=== PATIENT | male | born 1950 | race Caucasian/White ===

== ENCOUNTER 2017-02-17 16:25 | Emergency (ER) | payer OTHER ==
[~2017-02-17] VITALS: Ht 172.7 cm; Wt 127.0 kg
[~2017-02-17 16:25] MED LIST: AFRIN NASAL60 SPRAY NAS; ATORVASTATIN CA40 MG PO; AUGMENTIN 500M500 MG PO; AUGMENTIN 875875 MG PO; BENICAR HCT 12.1 TA2 PO; DILTIAZEM120 MG PO; DOXAZOSIN4 MG PO; DULERA1 AR1 IH; EPLERENONE50 MG PO; FLOMAX0.4 M1 PO; FLONASE120 SPRAY/ NAS; FOLIC ACID0.4 MG PO; IPRATROPIUM BRO1 POW IH; K-DUR 20MEQ TA20 MEQ PO; KLOR-CON20 MEQ PO; LASIX40 MG PO; LEVOCETIRIZINE D5 MG PO; METFORMIN HCL500 MG PO; METFORMIN1000 MG PO; METOPROLOL SUCC50 MG PO; NASONEX0.05 MG/Ac IH; NASONEX0.05 MG/Ac NAS; NEXIUM 40MG40 MG PO; PERCOCET 5-3251 EACH PO; PRADAXA150 MG PO; PREDNISONE 20MG20 MG PO; PROAIR HFA0.09 MG/Ac IH; SINGULAIR10 MG PO; SUPER B COMPLEX PO; TRICOR 145 MG145 MG PO; TRICOR 48MG48 MG PO; VITAMIN B COMPL1 TA3 PO; ZOFRAN ODT4 M1 PO
--- NOTE | 2017-02-17 18:04 | ED CARDIAC/CP/PALPITATIONS ---
History of Present Illness General Chief Complaint: General Adult Stated Complaint: LOW BP 80'S/50'S AT HOME, HEAVINESS IN CHEST Source: patient, family, old records Exam Limitations: no limitations Vital Signs & Intake/Output Vital Signs & Intake/Output Vital Signs Date Time Temp Pulse Resp B/P B/P Pulse O2 O2 Flow FiO2 Mean Ox Delivery Rate 02/17 2252 96.0 75 16 176/92 96 Room Air 02/17 1857 78 16 144/70 02/17 1823 94 02/17 1644 97.3 62 18 128/80 97 Room Air Allergies Coded Allergies: NO KNOWN ALLERGIES (02/11/11) Reconcile Medications Albuterol Sulfate (Proair Hfa) 90 MCG HFA.AER.AD 2 PUF INH BID PRN ASTHMA/COPD (Reported) Atorvastatin Calcium 40 MG TABLET 1 TAB PO DAILY CHOLESTEROL (Reported) Azelastine/Fluticasone (Dymista Nasal [place]) 137 MCG-50 MCG/SPRAY SPRAY.PUMP 1 SPRAY NASB BID ALLERGIES (Reported) Diltiazem HCl 120 MG TABLET 1 TAB PO QAM HEART/BP (Reported) Eplerenone 50 MG TABLET 1 TAB PO DAILY BP (Reported) Fenofibrate Nanocrystallized (Fenofibrate) 145 MG TABLET 1 TAB PO DAILY CHOLESTEROL/TRIGLYCERIDES (Reported) Furosemide 20 MG TABLET 1 TAB PO DAILY DIURETIC (Reported) Ipratropium/Albuterol Sulfate (Iprat-Albut 0.5-3(2.5) MG/3 Ml) 0.5 MG-3 MG (2.5 MG BASE)/3 ML AMPUL.NEB 1 VIAL INH Q6H PRN ASTHMA/COPD (Reported) Levocetirizine Dihydrochloride 5 MG TABLET 1 TAB PO DAILY ALLERGIES (Reported ) Metformin HCl 500 MG TABLET 1 TAB PO DAILY DM (Reported) Metoprolol Tartrate 50 MG TABLET 1 TAB PO BID HEART/BP (Reported) Mometasone/Formoterol (Dulera 200 Mcg/5 Mcg Inhaler) 200 MCG-5 MCG/ACTUATION HFA.AER.AD 2 PUF INH BID ASTHMA/COPD (Reported) Montelukast Sodium 10 MG TABLET 1 TAB PO DAILY ALLERGIES (Reported) Olmesartan Medoxomil (Benicar) 20 MG TABLET 1 TAB PO DAILY BP (Reported) Omalizumab (Xolair) 150 MG VIAL 150 MG INJ Q2W ALLERGIES (Reported) Potassium Chloride 40 MEQ/15 ML LIQUID 15 ML PO DAILY SUPPLEMENT (Reported) Rivaroxaban (Xarelto) 20 MG TABLET 1 TAB PO DAILY BLOOD THINNER (Reported) with food Tiotropium Trail (Spiriva Respimat) 1.25 MCG/ACTUATION MIST.INHAL 2.5 MCG INH DAILY ASTHMA/COPD (Reported) Triage Note: PT REPORTS TO FEELING LIGHTHEADED AND UPON EVALUATING HIS BP HE NOTED VALUES TO BE TOO LOW. REPORTED 80'S SYSTOLIC AND 40'S DIASTOLIC. FOR THIS REASON HE DECIDED TO BE EVALUATED HERE AT THE ED. DENIED CHEST PAIN, NAUSEA OR VOMITING Triage Nurses Notes Reviewed? yes Onset: Abrupt Duration: hour(s): (09/30) Timing: single episode today Quality/Severity: moderate Location: central Activities at Onset: rest Aspirin Today: no aspirin today (ON XARELTO) HPI: This is a 66-year-old male with history of A. fib on xarelto, history of asthma, recent allergies who presents to the ER with his for chief complaint of feeling very lethargic when he got home. He was running run errands and at 2:30 came home when he felt lightheaded and dizzy. He felt very weak and lethargic. He checked his blood pressure was which was 85/50 and his heart rate was in the low 50s. Normally his blood pressure runs around 120 or 1:30 systolic. Denies any fever or chills. He has been eating and drinking normally. Patient is status post a course of of prednisone for 6 days which was given to him for a fraction. He states that he is having active cough still producing green sputum. He states his chest feels heavy like with brief previous asthma. Patient returned from [place] one week ago. He does admit to lower extremity swelling. (JOCELYNN SHEIKH,INDIRA) Past History Travel History Traveled to [place] past 21 day No Medical History Any Pertinent Medical History? 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 No (INDIRA CABEZAS MD) Review of Systems Review of Systems Constitutional: Denies: chills, fever. EENTM: Reports: no symptoms. Respiratory: Reports: cough, short of breath. Cardiovascular: Reports: chest pain, peripheral edema. Denies: palpitations, syncope. GI: Denies: abdominal pain. Genitourinary: Reports: no symptoms. Musculoskeletal: Reports: no symptoms. Skin: Reports: no symptoms. Neurological/Psychological: Reports: no symptoms. Hematologic/Endocrine: Denies: bruising, bleeding. Immunologic/Allergic: Denies: splenectomy. All Other Systems: Reviewed and Negative (INDIRA CABEZAS MD) Physical Exam Physical Exam General Appearance: well developed/nourished, alert, awake, mild distress, severe distress, obese Head: atraumatic, normal appearance Eyes: Bilateral: normal appearance, PERRL, EOMI. Ears, Nose, Throat: normal pharynx, hearing grossly normal Neck: normal inspection, supple, full range of motion Respiratory: DIMINISHED BREATH SOUNDS BILATERALLY Cardiovascular: irregularly irregular Peripheral Pulses: 2+ radial (R), 2+ radial (L) Gastrointestinal: soft, non-tender Extremities: 2+ EDEMA BILATERALLY Neurologic/Psych: no motor/sensory deficits, awake, alert, oriented x 3 Skin: intact, normal color, warm/dry Core Measures ACS in differential dx? Yes ASA ordered for poss ACS? No-other contraindication (ON XARELTO) Severe Sepsis Present: No Septic Shock Present: No (INDIRA CABEZAS MD) Progress Differential Diagnosis: AMI, CHF/pulm edema, pneumonia, pneumothorax, pulmonary embolism, unstable angina, bronchitis, asthma exacerbation Plan of Care: Orders Procedure Date/time Status TROPONIN LEVEL 02/17 2156 Complete BLOOD CULTURE 02/17 180 Active LACTIC ACID 02/17 180 Complete RT ED ORDERS 02/17 180 Active Telemetry/Overlock Collar Setter 02/17 180 Active TROPONIN LEVEL 02/17 180 Complete PARTIAL THROMBOPLASTIN TIME 02/17 180 Complete PROTHROMBIN TIME 02/17 180 Complete COMPREHENSIVE METABOLIC PANEL 02/17 180 Complete CBC WITHOUT DIFFERENTIAL 02/17 1803 Complete B-TYPE NATRIURETIC PEP (BNP) 02/17 1803 Complete EKG 02/17 1627 Active Laboratory Tests 02/17/17 2210: Troponin I < 0.01 02/17/17 2104: Lactic Acid Cancelled 02/17/171936: Lactic Acid 1.0 02/17/171936: Anion Gap 7, Estimated GFR 51 L, BUN/Creatinine Ratio 22.1, Glucose 96, Calcium 8.5, Total Bilirubin 0.4, AST 9 L, ALT 38, Alkaline Phosphatase 37, Troponin I < 0.01, Llx-N-Hgqsentrqvy Pept 1980 H, Total Protein 5.8 L, Albumin 3.4 L, Globulin 2.4, Albumin/Globulin Ratio 1.4, PT 28.0 H, INR 2.69 H, APTT 37, CBC w Diff NO MAN DIFF REQ, RBC 4.18 L, MCV 89.3, MCH 29.0, RDW 14.2, MPV 8.1, Gran % 73.1, Lymphocytes % 15.6 L, Monocytes % 8.8, Eosinophils % 2.0, Basophils % 0.5, Absolute Granulocytes 6.9 H, Absolute Lymphocytes 1.5, Absolute Monocytes 0.8 H, Absolute Eosinophils 0.2, Absolute Basophils 0.1, PUBS MCHC 32.5 L Microbiology 02/17 1937 BLOOD: Blood Culture - RECD 02/18 1804 BLOOD: Blood Culture - CAN Cancelled: Cancelled via OE: NOT NEEDED Diagnostic Imaging: Viewed by Me: Radiology Read. Discussed w/RAD: Radiology Read. CXR Impression: PATIENT: LILI CHUNG PRESENT AGE: 66 PATIENT ACCOUNT NO: [id number] : 52 LOCATION: [facility] ORDERING PHYSICIAN: INDIRA CABEZAS MD SERVICE DATE: 02/17/17 EXAM TYPE: RAD - XRY-CHEST XRAY , PA AND LATERAL EXAMINATION: XR CHEST CLINICAL INFORMATION: Cough, green sputum. Heavy chest. COMPARISON: Multiple priors, most recently chest CT from and radiograph from 05/01/2015. TECHNIQUE: 2 views of the chest were obtained. FINDINGS: The lungs are well expanded. Lucency of the upper lungs is consistent with known emphysema. There is a hazy left basilar opacity. The right lung appears clear. No pneumothorax. The cardiomediastinal silhouette is unremarkable. IMPRESSION: Left basilar opacity likely represents a combination of small pleural effusion with associated atelectasis/pneumonia. The appearance could be in part secondary to a prominent epicardial fat-pad as seen on prior CT. DICTATED BY: HERNÁN HARTMANN MD DATE/TIME DICTATED:02/17/171823 SUPERINTENDENT CAR [employer]STRUCTION:[employer] DATE/TIME TRANSCRIBED:02/17/171823 CONFIDENTIAL, DO NOT COPY WITHOUT APPROPRIATE AUTHORIZATION. <Electronically signed in Other Vendor System> SIGNED BY: HERNÁN HARTMANN MD 02/17/171828 Initial ED EKG: AFIB, RATE CONTROLLED Hand-Off Endorsed To: GILDA JOHNSON MD Endorsed Time: 1899 Pending: labs (INDIRA CABEZAS MD) Comments: Patient has been seen by Dr. Cartagena in the emergency department. Patient has been advised of his laboratory data and chest x-ray results. Patient states he has had a productive cough. There are no fevers. He has a normal white count. Patient states he did feel better, and on antibiotics. (GILDA JOHNSON MD) Departure Departure Condition: Stable Clinical Impression Primary Impression: Pneumonia Referrals: PETE JOLLEY MD (PCP/Family) Departure Forms: Customer Survey General Discharge Information (INDIRA CABEZAS MD) Departure Disposition: HOME OR SELF CARE Additional Instructions: RETURN IF SYMPTOMS WORSEN OR FOR ANY CONCERNS Prescriptions: Current Visit Scripts Azithromycin (Zithromax) 1 DP PO AD #6 TAB 2 the first day followed by 1 for days 2-5 (GILDA JOHNSON MD) Critical Care Note Critical Care Note Critical Care Time: non-applicable (INDIRA CABEZAS MD)
--- NOTE | 2017-02-17 18:29 | RADIOLOGY REPORT ---
EXAMINATION: XR CHEST CLINICAL INFORMATION: Cough, green sputum. Heavy chest. COMPARISON: Multiple priors, most recently chest CT from 08/13/2016 and radiograph from 05/01/2015. TECHNIQUE: 2 views of the chest were obtained. FINDINGS: The lungs are well expanded. Lucency of the upper lungs is consistent with known emphysema. There is a hazy left basilar opacity. The right lung appears clear. No pneumothorax. The cardiomediastinal silhouette is unremarkable. IMPRESSION: Left basilar opacity likely represents a combination of small pleural effusion with associated atelectasis/pneumonia. The appearance could be in part secondary to a prominent epicardial fat-pad as seen on prior CT.
[2017-02-17] MEDS ORDERED: IPRAT-ALBUT 0.5-3 ML INH (18:49)
[2017-02-17] MEDS ORDERED: ATORVASTATIN CA40 M1 PO (18:50)
[2017-02-17] MEDS ORDERED: METOPROLOL TART50 M1 PO (18:50)
[2017-02-17] MEDS ORDERED: BENICAR20 M1 PO (18:50)
[2017-02-17] MEDS ORDERED: DILTIAZEM HCL120 M3 PO (18:50)
[2017-02-17] MEDS ORDERED: DYMISTA NASAL S23 GM NASB (18:51)
[2017-02-17] MEDS ORDERED: FENOFIBRATE145 M1 PO (18:51)
[2017-02-17] MEDS ORDERED: LEVOCETIRIZINE D5 M1 PO (18:51)
[2017-02-17] MEDS ORDERED: XOLAIR INJ (18:51)
[2017-02-17] MEDS ORDERED: MONTELUKAST SOD10 M1 PO (18:52)
[2017-02-17] MEDS ORDERED: METFORMIN HCL500 M3 PO (18:52)
[2017-02-17] MEDS ORDERED: XARELTO20 M2 PO (18:52)
[2017-02-17] MEDS ORDERED: FUROSEMIDE20 M1 PO (18:52)
[2017-02-17] MEDS ORDERED: EPLERENONE50 M1 PO (18:53)
[2017-02-17] MEDS ORDERED: DULERA 200 MCG/13 GM INH (18:53)
[2017-02-17] MEDS ORDERED: PROAIR HFA8.5 GM INH (18:54)
[2017-02-17] MEDS ORDERED: SPIRIVA RESPIMAT4 G1 INH (18:54)
[2017-02-17] MEDS ORDERED: POTASSIUM40 MEQ/15 PO (18:55)
[2017-02-17 19:50] LABS: ABSOLUTE BASOPHIL COUNT 0.1 /CUMM (0.0-0.2); ABSOLUTE EOSINOPHIL COUNT 0.2 /CUMM (0.0-0.7); ABSOLUTE GRANULOCYTE CT 6.9 /CUMM (1.4-6.5); ABSOLUTE LYMPH COUNT 1.5 /CUMM (1.2-3.4); ABSOLUTE MONOCYTE COUNT 0.8 /CUMM (0.10-0.60); BASOPHIL % 0.5 % (0.0-2.0); GRANULOCYTE % 73.1 % (42.2-75.2); HEMATOCRIT 37.4 % (42-52); MEAN CORPUSCULAR HGB CONC 32.5 G/DL (33.0-37.0); MEAN CORPUSCULAR VOLUME 89.3 FL (80.0-94.0); MEAN PLATELET VOLUME 8.1 FL (7.4-10.4); PLATELET COUNT 249 /CUMM (130-400); RBC DISTRIBUTION WIDTH 14.2 % (11.5-14.5); RED BLOOD CELL CT 4.18 /CUMM (4.70-6.10); WHITE BLOOD CELL COUNT 9.4 /CUMM (4.8-10.8)
[2017-02-17 20:14] LABS: PTT 37 SEC (25-37)
[2017-02-17 22:52] VITALS: BP 176/92
[2017-02-17] MEDS ORDERED: ZITHROMAX250 M2 PO (23:12)
== END 2017-02-17 23:20 ==
LOC: ERH 16:25
PROVIDERS: Emergency Medicine
DX: J18.9 Pneumonia, unspecified organism (principal); Z87.891 Personal history of nicotine dependence
CPT/HCPCS: 1263; 87040; 93005; 93010

== ENCOUNTER 2018-03-11 16:44 | Inpatient (IN) | payer OTHER ==
[~2018-03-11] VITALS: Ht 172.7 cm; Wt 139.7 kg
[~2018-03-11 16:44] MED LIST changes: +ATORVASTATIN CA40 M1 PO; +BENICAR20 M1 PO; +CEFUROXIME500 MG PO; +DILTIAZEM HCL120 M3 PO; +DOXAZOSIN MESYLA4 M1 PO; +DULERA 200 MCG/13 GM INH; +DYMISTA NASAL S23 GM NASB; +EPLERENONE50 M1 PO; +FENOFIBRATE145 M1 PO; +FUROSEMIDE20 M1 PO; +IPRAT-ALBUT 0.5-3 ML INH; +LASIX40 M1 PO; +LEVOCETIRIZINE D5 M1 PO; +METFORMIN HCL500 M3 PO; +METOPROLOL TART50 M1 PO; +MONTELUKAST SOD10 M1 PO; +POTASSIUM40 MEQ/15 PO; +PREDNISONE10 M2 PO; +PROAIR HFA8.5 GM INH; +SPIRIVA RESPIMAT4 G1 INH; +XARELTO20 M2 PO; +XOLAIR INJ; +ZITHROMAX250 M2 PO
[2018-03-11 17:27] LABS: ABSOLUTE BASOPHIL COUNT 0 /CUMM (0.0-0.2); ABSOLUTE EOSINOPHIL COUNT 0.4 /CUMM (0.0-0.7); ABSOLUTE GRANULOCYTE CT 7.9 /CUMM (1.4-6.5); ABSOLUTE LYMPH COUNT 1.2 /CUMM (1.2-3.4); ABSOLUTE MONOCYTE COUNT 0.8 /CUMM (0.10-0.60); BASOPHIL % 0.3 % (0.0-2.0); EOSINOPHIL % 3.6 % (0-5); GRANULOCYTE % 76.5 % (42.2-75.2); HEMATOCRIT 42.3 % (42-52); MEAN CORPUSCULAR HGB 29.6 PG (27.0-31.0); MEAN CORPUSCULAR VOLUME 89.7 FL (80.0-94.0); MEAN PLATELET VOLUME 8.2 FL (7.4-10.4); PLATELET COUNT 267 /CUMM (130-400); RBC DISTRIBUTION WIDTH 14.5 % (11.5-14.5); RED BLOOD CELL CT 4.72 /CUMM (4.70-6.10); WHITE BLOOD CELL COUNT 10.3 /CUMM (4.8-10.8)
--- NOTE | 2018-03-11 17:50 | RADIOLOGY REPORT ---
EXAMINATION: CHEST 2 VIEWS CLINICAL INFORMATION: Shortness of breath, cough. COMPARISON: 03/06/2018. TECHNIQUE: PA and lateral views of the chest were obtained. FINDINGS: The cardiac silhouette is stable. The mediastinal and hilar contours are unremarkable. There are no pneumothoraces. There is a small left pleural effusion. There is mild associated atelectasis. There are no consolidations. The osseous structures are stable. IMPRESSION: No consolidations. Small left pleural effusion.
--- NOTE | 2018-03-11 17:55 | ED DYSPNEA/ASTHMA COMPLAINT ---
History of Present Illness General Chief Complaint: Upper Respiratory Sx/Fever Stated Complaint: SIB DR JOLLEY S/P ER DISCHARGE W/ DX OF PNEUMONIA? Source: patient, family, old records Exam Limitations: no limitations Vital Signs & Intake/Output Vital Signs & Intake/Output Vital Signs Date Time Temp Pulse Resp B/P B/P Pulse O2 O2 Flow FiO2 Mean Ox Delivery Rate 03/12 0621 97.8 93 20 158/80 94 Room Air 03/11 2333 106 158/90 03/11 2255 97.7 87 18 158/90 96 Room Air 03/11 2218 Room Air 03/11 2122 98.5 110 16 176/94 97 Room Air 03/11 1946 97 Room Air 03/11 1946 98.5 98 18 185/105 97 Room Air 03/11 1653 97.7 98 18 178/97 95 Room Air ED Intake and Output 03/12 0000 03/11 1200 Intake Total 0 Output Total Balance 0 Intake, IV 0 Patient 306 lb Weight Weight Bed scale Measurement Method Allergies Coded Allergies: NO KNOWN ALLERGIES (02/11/11) Triage Note: PT FROM HOME C/O PNEUMONIA SINCE FRIDAY. PT WAS SEEN HERE IN ER ON FRIDAY AND DX WITH PNEUMONIA SENT HOME WITH MULTIPLE MEDICATIONS, PT SEEN PCP ON FRIDAY, NOT FEELING BETTER. PT PLACED ON LEVAQUIN WITHOUT ANY RELIEF. PT HAS A PRODUCTIVE COUGH WITH CLEAR SPUTUM, SOB AND LETHARGY. Triage Nurses Notes Reviewed? yes Onset: Gradual Duration: day(s): Timing: recent history Severity: moderate HPI: 67-year-old male with history of COPD, CHF, afib on Xarelto, HTN, diabetes, CKD presents to ED complaining of worsening symptoms of pneumonia. Patient was seen and evaluated here on 03/08 and was diagnosed with upper respiratory tract infection for which she was taking azithromycin and steroids for. Patient states that the following day he followed up with his primary care doctor and was switched to Levaquin. Patient states that despite 3 days of Levaquin his symptoms are worsening. Patient reports increasing shortness of breath, worse with laying flat and exertion. Patient also reports reductive of clear sputum. He reports chest pain and back pain which she associates with his cough. His chest pain has been constant for 5 days. Patient also feels body aches, weakness, and malaise. Patient has been going to Las[facility] clinic for IV Lasix 3 times a week and reports improvement in pedal edema. Patient denies fevers, chills, abdominal pain, nausea, vomiting. (Cait MENDOZA,Venessa Martinez) Reconcile Medications Albuterol Sulfate (Proair Hfa) 90 MCG HFA.AER.AD 2 PUF INH BID PRN ASTHMA/COPD (Reported) Atorvastatin Calcium 40 MG TABLET 1 TAB PO DAILY CHOLESTEROL (Reported) Azelastine/Fluticasone (Dymista Nasal [place]) 137 MCG-50 MCG/SPRAY SPRAY.PUMP 1 SPRAY NASB BID ALLERGIES (Reported) Budesonide/Formoterol Fumarate (Symbicort 160-4.5 Mcg Inhaler) 160 MCG-4.5 MCG/ ACTUATION HFA.AER.AD 2 PUF INH BID COPD (Reported) Eplerenone 50 MG TABLET 1 TAB PO DAILY BP (Reported) Esomeprazole (Nexium) 40 MG CAPSULE.DR 1 CAP PO DAILY GI (Reported) Fenofibrate Nanocrystallized (Fenofibrate) 145 MG TABLET 1 TAB PO DAILY CHOLESTEROL/TRIGLYCERIDES (Reported) Folic Acid 0.4 MG TABLET 1 TAB PO DAILY SUPPLEMENT (Reported) Furosemide (Lasix) 40 MG TABLET 1 TAB PO BID water pill (Reported) Ipratropium/Albuterol Sulfate (Iprat-Albut 0.5-3(2.5) MG/3 Ml) 0.5 MG-3 MG (2.5 MG BASE)/3 ML AMPUL.NEB 1 VIAL INH Q6H PRN ASTHMA/COPD (Reported) Levocetirizine Dihydrochloride 5 MG TABLET 1 TAB PO DAILY ALLERGIES (Reported ) Levofloxacin 500 MG TABLET 1 TAB PO DAILY ABX (Reported) Metformin HCl 500 MG TABLET 1 TAB PO DAILY DM (Reported) Metoprolol Tartrate 50 MG TABLET 1 TAB PO BID HEART/BP (Reported) Montelukast Sodium 10 MG TABLET 1 TAB PO DAILY ALLERGIES (Reported) Olmesartan Medoxomil (Benicar) 20 MG TABLET 1 TAB PO DAILY BP (Reported) Omalizumab (Xolair) 150 MG VIAL 150 MG INJ Q2W ALLERGIES (Reported) Potassium Chloride 40 MEQ/15 ML LIQUID 15 ML PO DAILY SUPPLEMENT (Reported) Rivaroxaban (Xarelto) 20 MG TABLET 1 TAB PO DAILY BLOOD THINNER (Reported) with food Tiotropium [place] (Spiriva Respimat) 1.25 MCG/ACTUATION MIST.INHAL 2.5 MCG INH DAILY ASTHMA/COPD (Reported) (Blanca SHEIKH,Channing Cerda) Past History Travel History Traveled to [place] past 21 day No Medical History Any Pertinent Medical History? 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 No (Venessa Lal) Review of Systems Review of Systems Constitutional: Reports: see HPI. EENTM: Reports: no symptoms. Respiratory: Reports: see HPI. Cardiovascular: Reports: see HPI. GI: Reports: no symptoms. Genitourinary: Reports: no symptoms. Musculoskeletal: Reports: see HPI. Skin: Reports: no symptoms. Neurological/Psychological: Reports: no symptoms. Hematologic/Endocrine: Reports: no symptoms. Immunologic/Allergic: Reports: no symptoms. All Other Systems: Reviewed and Negative (Venessa Lal) Physical Exam Physical Exam General Appearance: well developed/nourished, no apparent distress, alert, awake Head: atraumatic, normal appearance Eyes: Bilateral: normal appearance. Ears, Nose, Throat: hearing grossly normal Neck: normal inspection, supple, full range of motion Respiratory: normal breath sounds, chest non-tender, no respiratory distress, lungs clear Cardiovascular: normal peripheral pulses, irregularly irregular Peripheral Pulses: 2+ radial (R), 2+ radial (L) Gastrointestinal: normal bowel sounds, non-tender, no organomegaly, moderate firmness Extremities: normal range of motion, 2-3+ pitting edema bilateral lower extremities Neurologic/Psych: awake, alert, oriented x 3 Skin: intact, normal color, warm/dry Core Measures ACS in differential dx? Yes CVA/TIA Diagnosis No Sepsis Present: No Sepsis Focused Exam Completed? No (Venessa Lal) Progress Differential Diagnosis: AMI, bronchitis, costochondritis, CHF, COPD, pericarditis, pulmonary embolism, pneumonia, unstable angina Plan of Care: Orders Procedure Date/time Status CHF Diet 03/12 B Active MAGNESIUM 03/12 06 Active CBC WITHOUT DIFFERENTIAL 03/12 06 Active BASIC ELECTROLYTES PLUS BUN&CR 03/12 0600 Active Code Status 03/11 2330 Active Weight 03/11 2218 Active Vital Signs 03/11 2218 Active Teach/Educate 03/11 221 Active Pain Treatment and Response 03/11 221 Active Nutritional Intake, Monitor 03/11 2218 Active Isolation 03/11 2218 Active Intake & Output 03/11 2218 Active Patient Care Conference 03/11 2218 Active Activity/Ambulation 03/11 2218 Active STREP PNEUMO URINARY ANTIGEN 03/11 220 Active LEGIONELLA URINARY ANTIGEN 03/11 220 Active LOWER RESPIRATORY CULTURE 03/11 204 Active Pathway - chart 03/11 202 Active House Staff 03/11 202 Active Patient Data 03/11 202 Active ECHOCARDIOGRAM 03/11 202 Active Patient Data 03/11 1926 Active Intake & Output 03/11 1909 Active ED Holding Orders 03/11 1857 Active Admit to inpatient 03/11 1857 Active Vital Signs 03/11 1857 Active Code Status 03/11 1857 Complete MAGNESIUM 03/11 1715 Complete BLOOD CULTURE 03/11 1653 Active TROPONIN LEVEL 03/11 1653 Complete COMPREHENSIVE METABOLIC PANEL 03/11 1653 Complete CBC WITHOUT DIFFERENTIAL 03/11 1653 Complete B-TYPE NATRIURETIC PEP (BNP) 03/11 1653 Complete EKG 03/11 1653 Active TRC EVALUATION (GEN) 03/11 UNK Active CHF Core Measures 03/11 UNK Active Lab Add-on Test 03/11 UNK Active Weight 03/11 UNK Active VTE Mechanical Prophylaxis 03/11 UNK Active Vital Signs 03/11 UNK Active Telemetry/Shirt Line Operator 03/11 UNK Active Intake & Output 03/11 UNK Active FingerStick- Glucose 03/11 UNK Active Activity/Ambulation 03/11 UNK Active Current Medications Sig/Rachel Start time Last Medication Dose Stop Time Status Admin Atorvastatin Calcium 40 MG DAILY 03/12 0900 AC (Lipitor) Azithromycin 500 MG DAILY 03/12 09 AC (Zithromax) Sodium Chloride 250 ML (Normal Saline 0.9%) Ceftriaxone Sodium 2,000 MG DAILY 03/12 0900 AC (Rocephin) Fenofibrate 145 MG DAILY 03/12 0900 AC (Tricor) Folic Acid 1 MG DAILY 03/12 0900 AC (Folic Acid) Losartan Potassium 50 MG DAILY 03/12 09 AC (Cozaar) Montelukast Sodium 10 MG DAILY 03/12 0900 AC (Singulair) Rivaroxaban 20 MG DAILY 03/12 0900 AC (Xarelto) Omeprazole 40 MG DAILY AC 03/12 0700 AC 03/12 (Prilosec) 0544 Metoprolol Tartrate 50 MG BID 03/114 AC 03/11 (Lopressor) 2333 Methylprednisolone 40 MG Q12 03/11 2158 AC 03/11 (Solumedrol) 2333 Laboratory Tests 03/12/18 0632: Sodium Pending, Potassium Pending, Chloride Pending, Carbon Dioxide Pending, Anion Gap Pending, BUN Pending, Creatinine Pending, BUN/Creatinine Ratio Pending , Magnesium Pending, CBC w Diff Pending, WBC Pending, RBC Pending, Hgb Pending, Hct Pending, MCV Pending, MCH Pending, MCHC Pending, RDW Pending, Plt Count Pending, MPV Pending 03/11/18 1715: Anion Gap 13, Estimated GFR 41 L, BUN/Creatinine Ratio 17.1, Glucose 111 H, Calcium 9.3, Magnesium 1.7, Total Bilirubin 0.4, AST 16 L, ALT 16 L, Alkaline Phosphatase 48, Troponin I < 0.01, [id number]-Jdcdbaufyoa Pept 2090 H, Total Protein 6.4, Albumin 3.5, Globulin 2.9, Albumin/Globulin Ratio 1.2, CBC w Diff NO MAN DIFF REQ, RBC 4.72, MCV 89.7, MCH 29.6, MCHC 33.0, RDW 14.5, MPV 8.2, Gran % 76.5 H, Lymphocytes % 11.7 L, Monocytes % 7.9, Eosinophils % 3.6, Basophils % 0.3, Absolute Granulocytes 7.9 H, Absolute Lymphocytes 1.2, Absolute Monocytes 0.8 H, Absolute Eosinophils 0.4, Absolute Basophils 0 Microbiology 03/12 530 URINE ROUT: Legionella Antigen - RECD 03/12 530 URINE ROUT: Streptococcus pneumoniae Antigen (M - RECD 03/12 35 LOWER RESP: Respiratory Culture - RECD 06/14 0035 LOWER RESP: Gram Stain - RECD 03/11 1855 BLOOD: Blood Culture - RECD 03/11 1715 BLOOD: Blood Culture - RECD Patient's BNP has doubled compared to previous labs from a few days ago. Patient reports worsening symptoms including dyspnea with lying flat and exertion. Patient does not feel comfortable going home. He has no fevers. His symptoms are more consistent with CHF exacerbation than infectious etiology. Symptoms are worsening despite visits to CHF clinic as outpatient. Given these findings with multiple ER visits and primary care visits it is in the patient's best interest to be admitted here to the hospital. Spoke with Dr. Jolley who agrees with this plan, he recommends echocardiogram with Dr. Cartagena while the patient is here. He also states patient will require slow diuresis given his history of aortic stenosis. Spoke with case management who recommend full admission. Dr. Rios agrees with this plan. Awaiting cardiology return page. Diagnostic Imaging: Viewed by Me: Radiology Read. Discussed w/RAD: Radiology Read. Radiology Impression: PATIENT: LILI CHUNG PRESENT AGE: 67 PATIENT ACCOUNT NO: [id number] : 52 LOCATION: [facility] ORDERING PHYSICIAN: Faisal MENDOZA SERVICE DATE: 03/11/18 EXAM TYPE : RAD - XRY-CHEST XRAY, TWO VIEWS EXAMINATION: CHEST 2 VIEWS CLINICAL INFORMATION: Shortness of breath, cough. COMPARISON: 03/06/2018. TECHNIQUE: PA and lateral views of the chest were obtained. FINDINGS: The cardiac silhouette is stable. The mediastinal and hilar contours are unremarkable. There are no pneumothoraces. There is a small left pleural effusion. There is mild associated atelectasis. There are no consolidations. The osseous structures are stable. IMPRESSION: No consolidations. Small left pleural effusion. DICTATED BY: Panchito Ko MD DATE/TIME DICTATED:03/11/181743 TRACK WALKER:SVETLANA DATE/ TIME TRANSCRIBED:03/11/181743 CONFIDENTIAL, DO NOT COPY WITHOUT APPROPRIATE AUTHORIZATION. <Electronically signed in Other Vendor System> SIGNED BY: Panchito Ko MD 03/11/18 1540 Initial ED EKG: atrial fibrillation @102bpm, nonspecific ST changes Prior EKG: unchanged (Cait MENDOZA,Venessa Martinez) Departure Departure Disposition: STILL A PATIENT Condition: Stable Clinical Impression Primary Impression: CHF exacerbation Qualifiers: Heart failure type: unspecified Qualified Code: I50.9 - Heart failure, unspecified Secondary Impressions: Chest pain Qualifiers: Chest pain type: unspecified Qualified Code: R07.9 - Chest pain, unspecified Dyspnea Qualifiers: Dyspnea type: unspecified Qualified Code: R06.00 - Dyspnea, unspecified Referrals: Demarcus Jolley MD (PCP/Family) Departure Forms: Customer Survey General Discharge Information Admission Note Spoke With: Demarcus Jolley MD Documentation of Exam: Documentation of any treatments & extenuating circumstances including Concerns Regarding Discharge (functional status, medication knowledge or non-compliance, living conditions, etc.) that warrant an admission rather than observation: [CHF exacerbation with increasing BNP, symptomatic patient who is very dyspneic, requires cardiology consult, slow diuresis in setting of aortic stenosis, echo, telemetry monitoring, premature discharge medically unsafe] (Venessa Lal) PA/PHARMACY RESIDENT Co-Sign Statement Statement: ED Attending supervision documentation- [X] I saw and evaluated the patient. I have also reviewed all the pertinent lab results and diagnostic results. I agree with the findings and the plan of care as documented in the PA's/PHARMACY RESIDENT's documentation. [X] I have reviewed the ED Record and agree with the PA's/PHARMACY RESIDENT's documentation. [] Additions or exceptions (if any) to the PAs/PHARMACY RESIDENT's note and plan are summarized below: [Patient to be admitted to telemetry for IV antibiotics, IV diuresis, serial enzymes, cardiology consultation, pulmonary consultation] (Blanca SHEIKH,Channing Cerda) Critical Care Note Critical Care Note Critical Care Time: non-applicable (Venessa Lal)
[2018-03-11] MEDS ORDERED: LEVOFLOXACIN500 M1 PO (19:42)
[2018-03-11] MEDS ORDERED: LASIX80 M1 PO (19:43)
[2018-03-11] MEDS ORDERED: SYMBICORT 16010.2 GM INH (19:45)
[2018-03-11] MEDS ORDERED: NEXIUM40 M1 PO (19:46)
[2018-03-11] MEDS ORDERED: FOLIC ACID0.4 M1 PO (19:46)
--- NOTE | 2018-03-11 20:08 | History & Physical ---
Rafael Zarate MD,[facility] 03/11/182007: General Information and HPI MD Statement: I have seen and personally examined LILI CHUNG and documented this H&P. The patient is a 67 year old M who presented with a patient stated chief complaint of [SOB and cough]. Source of Information: patient, family, old records Exam Limitations: no limitations History of Present Illness: Patient is 67-year-old male with PMH of obese, CHF (diast and right side, follows Dr Cartagena) HTN, HLD, LILIA, DM, obesity, asthma, (area~1cm2), pulm HTN, Afib (on xeralton and metoprolol) presented to the ED with with chief complaint of shortness of breathing and cough. Patient noted that his complaints started since about 2 weeks ago after a travel that he had to [place] (which he related to hot humid weather). Patient also reported episodes of hemoptesis. His complaint did not improve after that. Patient visited ED on Friday for SOB, cough, clear sputumm and lethargy, was diagnosed with URTI/pneumonia and was adminitested azithromycin and prednisone, he did not take prednisolon the next day followed Dr Aguilera and recieved Levoquin with no improvement. Patient reported worsening of shortness, orthopnea, cough w sputum. Patient also reported cough with deep breathing, chest pain which increased with cough. Patient also reported body ache, fatigue. Patient goes to CHF clinic 3 times a week for IV Lasix and he recieved extra doses of Lasix for the last week, he noted his bilateral LE edema decreased. Patient was last admitted to [facility] in Apr 2017 for exacerbation of CHF and had increased Cr after IV lasxi, was discharged on higher dose of lasix with follow up visits in CHF clinic. He also had a visit to ED in May 2017 for SOB and was discharged with steroids for asthma/COPD after consulting Dr Lawson. The stress test peformed in Jun 2017 was negative. Patient quited smoking more than 20 y ago, and drinks scotch during the weekend. 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 spouse Services at Home: None Primary Language: Martiniquais Review of Systems Review of Systems Constitutional: Reports: see HPI. Exam & Diagnostic Data Last 24 Hrs of Vital Signs/I&O Vital Signs Date Time Temp Pulse Resp B/P B/P Pulse O2 O2 Flow FiO2 Mean Ox Delivery Rate 03/11 2122 98.5 110 16 176/94 97 Room Air 03/11 194 97 Room Air 03/11 194 98.5 98 18 185/105 97 Room Air 03/11 1653 97.7 98 18 178/97 95 Room Air Physical Exam General Appearance Alert, Oriented X3, Cooperative, Mild Distress, obese Skin No Rashes Skin Temp/Moisture Exam: Warm/Dry HEENT Atraumatic, EOMI Cardiovascular Regular Rate, Normal S1, Normal S2 Lungs No wheezing, cough with deep breathing, decreased breathing sounds Abdomen Soft, No Tenderness, obese Neurological Normal Speech, Strength at 5/5 X4 Ext Extremities +2-3 edema Last 24 Hrs of Labs/Ramon: Laboratory Tests 03/11/18 1715: Anion Gap 13, Estimated GFR 41 L, BUN/Creatinine Ratio 17.1, Glucose 111 H, Calcium 9.3, Magnesium 1.7, Total Bilirubin 0.4, AST 16 L, ALT 16 L, Alkaline Phosphatase 48, Troponin I < 0.01, Vza-H-Fljmajpdyuk Pept 2090 H, Total Protein 6.4, Albumin 3.5, Globulin 2.9, Albumin/Globulin Ratio 1.2, CBC w Diff NO MAN DIFF REQ, RBC 4.72, MCV 89.7, MCH 29.6, MCHC 33.0, RDW 14.5, MPV 8.2, Gran % 76.5 H, Lymphocytes % 11.7 L, Monocytes % 7.9, Eosinophils % 3.6, Basophils % 0.3, Absolute Granulocytes 7.9 H, Absolute Lymphocytes 1.2, Absolute Monocytes 0.8 H, Absolute Eosinophils 0.4, Absolute Basophils 0 Microbiology 03/111 URINE ROUT: Legionella Antigen - ORD 03/11 2201 URINE ROUT: Streptococcus pneumoniae Antigen (M - ORD 03/11 204 LOWER RESP: Respiratory Culture - ORD 03/11 2045 LOWER RESP: Gram Stain - ORD 03/11 1855 BLOOD: Blood Culture - RECD 03/11 1715 BLOOD: Blood Culture - RECD Assessment/Plan Assessment: Patient is 67-year-old male with shortness of breathing and cough. PMH of obese, CHF (diast and right side, follows Dr Cartagena) HTN, HLD, LILIA, DM, obesity, asthma, (area~1cm2), pulm HTN, Afib (on xeralton and metoprolol VS, Ph Ex at admission: No fever, blood pressure 178/97, others insignificant, saturating well in room air Labs at admission: Insignificant C BC MR WBC 10.3, Hgb 14 PA and 29, creatinine 1.7, p.m. creatinine ratio 17.1 pro BNP 2000 Imagings at admission: Chest x-ray: No consolidations. Small left pleural effusion. CTA 03/08/18: 1. No CT evidence of pulmonary embolism. 2. Previously documented bilateral sub-5 mm upper lobar lung nodules appear stable since the available baseline study dated 05/01/2015, consistent with benign pathology. 3. Evidence of extensive emphysematous disease, appears stable since multiple prior studies, with interval development of superimposed groundglass as well as peribronchiolar nodular opacities are noted within the right middle and right lower lobe of the lung, most consistent with infectious or inflammatory process. 4. Stable small right-sided pleural effusion and/or thickening, unchanged since the baseline study dated 05/01/2015. 5. Yihqq-gq-cptggcav left-sided pleural effusion shows minimal interval increase since 08/06/2017. 6. Stable small pericardial effusion. 7. Significant atherosclerotic disease including coronary arterial disease, appear unchanged. Patient was admitted to telemetry floor for management of following conditions: Respiratory distress COPD exacerbation, CHF exacerbation, Resolving pneumonia Decomp CHF, Right and Left, Aortic stenosis MARIAM, increased Cr Chronic medical conditions, afib - Admit to Tele floor - cardiac/BP monitor - Pulse ox, O2 supplement - TRC nebs - IV lasix hold for now for Cr - IV solumedrol - Ceftriaxone, azithromycin to complete course of antibiotocs - hold Levoquin - continue home medications - Echo - cardio consult, Dr Cartagena CHF diet, salt and fluids restriction FC DVT ppx: alps and pharmacological As Ranked By This Provider Problem List: 1. Respiratory distress Core Measures/Misc (06/15) Acute Coronary Syndrome ACS Diagnosis: No Congestive Heart Failure Congestive Heart Failure Diagnosis No Cerebrovascular Accident CVA/TIA Diagnosis: No VTE (View Protocol) VTE Risk Factors Age>40 No Mechanical VTE Prophylaxis d/t N/A MechProphylax Ordered No VTE Pharm Prophylaxis d/t NA PharmProphylax ordered Sepsis (View protocol) Sepsis Present: No If YES complete Sepsis Event Note If YES complete Sepsis Event Note Willy SHEIKH,[facility] 03/11/182051: Core Measures/Misc (06/15) Sepsis (View protocol) If YES complete Sepsis Event Note If YES complete Sepsis Event Note Attending MD Review Statement Attending Statement Attending MD Statement: examined this patient, discuss w/resident/PA/[employer] P[employer]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, agreed w/resident/PA/J[employer]ICE 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 CT scan of the chest from before reviewed which showed right lower lobe infiltrate severe emphysema Chest x-ray now showed clear lungs other than having left-sided effusion which is chronic for the patient This is a gentleman with history of significant hypertension, paroxysmal atrial fibrillation on anticoag, hyperlipidemia, diabetes, morbid obesity with obstructive sleep apnea non compliant with cpap, moderate alcohol use, significant BPH, previous kidney stone with no active renal stones at this time, recurrent sinusitis with previous polyps in the sinuses now on xolair, pulmonary hypertension from obstructive sleep apnea and moderate aortic stenosis, recent travel history to [place], recent emergency room visit with cough wheezing and a chest CT with contrast showed no PE however he had right lower lobe infiltrate for which she was on moxifloxacin. Now comes in with * Acute COPD exacerbation with cough wheezing shortness of breath * Resolving right lower lobe pneumonia was on moxifloxacin * Recent hemoptysis which is now resolved * Biventricular heart failure rt more than left with acute diastolic chf compounded by valvular heart disease, which is mild at this time appears euvolemic however he has chronically elevated BNP * Moderate aortic stenosis with significant hypertension, moderate pulmonary hypertension with obstructive sleep apnea playing a role hence he has secondary pulmonary hypertension, causing rt heart failure * Chronic atrial fibrillation now on anticoag, * Lower extremity edema due to combination of factors. Patient does have moderate pulmonary hypertension with right heart failure, pt does have sig protenuria aswell playing a role * CT scan of the chest severe emphysema, small lung nodule, bilateral pleural effusions in the recent past * Sig asthma with emphysema noted in the CAT scan, no sig bronchospasm noted this admission but pt to continue home inhalers * Chronic kidney disease now creat back up to 1.7 patient did get contrast recently * Morbid obesity with lilia with noncompliance with cpap * Previous mild to mod etoh use * CKD stage 1/2 * Previous protenuria * Previous history of significant smoking cigarettes quit many years ago was smoking cigars and has quit that now. * Significant chronic sinusitis with allergic component, significant asthma as well. Patient has been on Xolair and maximum medical therapy for chronic allergic sinusitis RECOMMENDATION Intravenous steroids Solu-Medrol 40 every 12 Intravenous ceftriaxone and azithromycin Check urinary Legionella and strep pneumo antigen Wemjq-tsd-bmlti nebulizer therapy Keep his O2 sat more than 90 Salt and fluid restriction Echocardiogram Hold Lasix for now check his creatinine Continue outpatient inhalers Check potassium Hold epleronone, metformin 2 potassium improves Continue anticoagulation Continue his inhalers Cardiology evaluation tomorrow We'll follow closely discussed with patient and his Bridgett Robert 03/11/181: General Information and HPI Allergies/Medications Home Med list Albuterol Sulfate (Proair Hfa) 90 MCG HFA.AER.AD 2 PUF INH BID PRN ASTHMA/COPD (Reported) Atorvastatin Calcium 40 MG TABLET 1 TAB PO DAILY CHOLESTEROL (Reported) Azelastine/Fluticasone (Dymista Nasal [place]) 137 MCG-50 MCG/SPRAY SPRAY.PUMP 1 SPRAY NASB BID ALLERGIES (Reported) Azithromycin 250 MG TABLET 250 MG PO DAILY COPD Budesonide/Formoterol Fumarate (Symbicort 160-4.5 Mcg Inhaler) 160 MCG-4.5 MCG/ ACTUATION HFA.AER.AD 2 PUF INH BID COPD (Reported) Esomeprazole (Nexium) 40 MG CAPSULE.DR 1 CAP PO DAILY GI (Reported) Fenofibrate Nanocrystallized (Fenofibrate) 145 MG TABLET 1 TAB PO DAILY CHOLESTEROL/TRIGLYCERIDES (Reported) Folic Acid 0.4 MG TABLET 1 TAB PO DAILY SUPPLEMENT (Reported) Furosemide 80 MG TABLET 1 TAB PO DAILY Diuretic Ipratropium/Albuterol Sulfate (Iprat-Albut 0.5-3(2.5) MG/3 Ml) 0.5 MG-3 MG (2.5 MG BASE)/3 ML AMPUL.NEB 1 VIAL INH Q6H PRN ASTHMA/COPD (Reported) Levocetirizine Dihydrochloride 5 MG TABLET 1 TAB PO DAILY ALLERGIES (Reported ) Metformin HCl 500 MG TABLET 1 TAB PO DAILY DM (Reported) Metoprolol Tartrate 50 MG TABLET 1 TAB PO BID HEART/BP (Reported) Montelukast Sodium 10 MG TABLET 1 TAB PO DAILY ALLERGIES (Reported) Olmesartan Medoxomil (Benicar) 20 MG TABLET 1 TAB PO DAILY BP (Reported) Omalizumab (Xolair) 150 MG VIAL 150 MG INJ Q2W ALLERGIES (Reported) Potassium Chloride 40 MEQ/15 ML LIQUID 15 ML PO DAILY SUPPLEMENT (Reported) Prednisone 10 MG TABLET 10 MG PO DAILY Steroid Taper Please take 50mg on 03/14/18, 40mg on 03/15/18-03/16/18, 30mg on 03/17/18-03/18/18, 20mg on 03/19/18-03/20/18, 10mg on 03/21/18-03/22/18, then stop. Rivaroxaban (Xarelto) 20 MG TABLET 1 TAB PO DAILY BLOOD THINNER (Reported) with food Tiotropium [place] (Spiriva Respimat) 1.25 MCG/ACTUATION MIST.INHAL 2.5 MCG INH DAILY ASTHMA/COPD (Reported) Core Measures/Misc (06/15) Sepsis (View protocol) If YES complete Sepsis Event Note If YES complete Sepsis Event Note Resident Review Statement Resident Statement: examined this patient, discussed with general internist, agreed with general internist Other Findings: Mr Denton is a 67-year-old gentleman with past medical history of atrial fibrillation on Xarelto, hypertension on Olmesartan, hyperlipidemia on statin, eczema, GERD on daily Nexium, gastric polyps status post resection (benign histopathology), osteoarthritis, obstructive sleep apnea, nephrolithiasis, BPH on doxazosin (now discontinued), COPD on ipratropium/albuterol, Dulera inhaler, montelukast and omalizumab, heart failure with preserved ejection fraction on Lasix 40 mg twice (80 mg twice daily), diabetes mellitus on metformin came in with chief complaint of worsening shortness of breath cough inspite outpatient treatment of community-acquired pneumonia. Apparently 2 weeks prior to today's presentation, Mr. Chung started to have some shortness of breath and sputum production while he was at [place], he also began to notice worsening bilateral lower extremity edema and some upper extremity edema as well. Upon return he followed up at his CHF clinic as usual and received 80 mg IV Lasix on Friday, 60 mg IV Lasix on Friday, and another 60 mg IV Lasix on Friday in addition to 80 mg twice daily of p.o. usual dose. In spite of this Friday which is 4 days prior to today's presentation he continued to have more sputum production, cough which was occasionally productive and at times dry along with hemoptysis with bright red blood and clots eventually the sputum turning pinkish, therefore he presented to [facility] ER for worsening symptoms on march 08 2018. Chest CTA was done that ruled out pulmonary embolism during the ER visit and was suggestive of possible infectious etiology therefore he was discharged on antibiotics azithromycin and a steroid taper 50 mg 2, 40 mg 2 and so on. He still continued to have worsening shortness of breath and saw his primary care Dr. Aguilera at the next day, who change his antibiotic to levofloxacin, however in spite of taking 3 days of levofloxacin, his shortness of breath was still present in fact getting worse, present on exertion and his cough got worse and every time he tries to inspire deeply, it would trigger bout of dry cough, there was also some sputum production, white in color, no more episodes of hemoptysis. He did continue to receive additional 80 mg of IV Lasix at the CHF clinic 1 day prior to presentation along with 80 mg p.o. twice daily of Lasix. His lower extremity edema has significantly improved in the last 10 days. He also reports some associated chest pain and back pain, which is worse when he coughs or inspires deeply. He also has associated symptoms of generalized body ache, weakness and malaise. His vitals at the emergency department are temperature of 97.7, pulse of 98, respiration of 18, blood pressure 178/97, he saturating 95% on room air. Chest x-ray images personally reviewed, small left pleural effusion, no obvious consolidation seen. Physical Exam : AOx3, comfortably lying on bed, no acute distress.cvs : s1,s2, irregularly irregular, systolic murmur+ RS : basal crackles b/l air entry normal, no wheezing heard as such, patient coughs on deep inspiration, pedal edema 1+,Pa : soft,nontender, neck : no jvd, DG, on lymphadenopathy. White count of 10.3, H/H of 14.0/42.3, platelet of 267. Electrolytes sodium 145, potassium 4.1, chloride of 102, bicarbonate 29, BUN/ creatinine 29/1.7 (baseline creatinine), proBNP elevated at 2090, previous proBNP was 1060 therefore definitely elevated from the previous value. Liver function tests mostly within normal limits. Initial set of troponin negative. CTA chest done on 08 March 2018 showed evidence of extensive emphysematous disease, same as previously seen, superimposed groundglass as well as peribronchiolar nodular opacities within the right middle and right lower lobe most consistent with infectious or inflammatory process, small right-sided effusion, [id number] left-sided effusion and small pericardial effusion. Problem list along with assessment and plan. Problem #1 heart failure with preserved ejection fraction continue to monitor intake and output, continue to monitor daily weights, patient has received significant amount of IV Lasix in the last 10 days at the CHF clinic, his lower extremity edema along with upper extremity edema has significantly improved, chest x-ray did not show any significant evidence of congestion. His creatinine has also been higher than his baseline, as he does not seem to be in florid heart failure, we will hold off any additional lasix for now. Cardiology consult with Dr. Cartagena in a.m. Consider repeating the echocardiogram to monitor the ejection fraction along with structural heart disease especially aortic stenosis. Continue to monitor electrolytes and replete as needed. He did take his 80 mg twice daily of Lasix today. #2 COPD exacerbation with extensive emphysema The patient continues to have worsening cough in spite of treatment of the pneumonia, he does have extensive baseline emphysema, we will continue all his COPD medications namely Singulair, TRC nebulizations, we will also start IV Solu -Medrol 40 mg every 12,Dr Aguilera on board. #[address] done on March 08 showed presence of inflammatory pathology and infiltrates, he was treated with initially azithromycin and then switched to levofloxacin, he has completed 3 days of levofloxacin, we will him 2 more days of IV ceftriaxone and azithromycin, current chest x-ray does not show any infiltrates then for pneumonia seems to be resolving. Continue to follow sputum cultures. Continue to follow urine Legionella and strep pneumonia antigen. #4 Obstructive Sleep Apnea. Patient has obstructive sleep apnea and uses CPAP however has not used it for last 2 weeks. #5 Moderate Aortic stenosis. His last echocardiogram was on 03/27/2017 which showed aortic valve area of 1.0 cm, with a peak gradient of 38.2 and mean gradient of 26 mmHg, this was an increase compared to previous echo in 2014 which had a mean gradient of 13 mmHg. Cardiology consult with Dr. Cartagena, repeat echo. #6 History of Diabetes Mellitus. Hold metformin, continue fingerstick monitoring, continue NovoLog sliding scale, if needed adjust NovoLog sliding scale while on steroids. #7.History of Atrial Fibrillation. EKG showed current atrial fibrillation, continue Xarelto for anticoagulation and metoprolol for rate control, rate running around 100. #8.Hyperlipidemia. Continue statin, fenofibrate. Full code. CHF diet. Pain management Tylenol. DVT prophylaxis with Xarelto
[2018-03-11 22:55] VITALS: BP 158/90
[2018-03-12] MEDS ORDERED: LASIX40 M1 PO (06:12)
[2018-03-12 06:21] VITALS: BP 158/80
--- NOTE | 2018-03-12 07:43 | PN- Housestaff ---
See Addendum Subjective Follow-up For: COPD exacerbation, MARIAM Tele-Events Since Last Visit: Atrial fibrillation, 80-140 Subjective: Patient presented and was admitted last night. He did not sleep well overnight because he received steroids which kept him up. He says that he is followed at the wellness clinic has been doing well until recently. He was on vacation in [place] when he started becoming more edematous and short of breath. He was eating out at restaurants more often. He came back up to the [facility] and went to see the wellness clinic 3 times last week, receiving Lasix each time. However his symptoms progressed and he started having hemoptysis so he went to the emergency room. A CT of the chest at that time showed interval development of groundglass opacities in the right middle and lower lobe of the lung superimposed on stable disease and he was started on azithromycin. He went back to his primary care doctor and was given levofloxacin. He continued to be short of breath and so came back to the emergency room and was admitted last night. His cough and shortness of breath are worse at night though he has not had any fevers. Right now he feels tired but otherwise better. Review of Systems Constitutional: Reports: no symptoms. EENTM: Reports: no symptoms. Cardiovascular: Reports: see HPI. Respiratory: Reports: see HPI. Gastrointestinal: Reports: no symptoms. Genitourinary: Reports: no symptoms. Musculoskeletal: Reports: no symptoms. Skin: Reports: no symptoms. Neurological/Psychological: Reports: no symptoms. Hematologic/Endocrine: Reports: no symptoms. Immunologic/Allergic: Reports: no symptoms. Objective Last 24 Hrs of Vital Signs/I&O Vital Signs Date Time Temp Pulse Resp B/P B/P Pulse O2 O2 Flow FiO2 Mean Ox Delivery Rate 03/12 621 97.8 93 20 158/80 94 Room Air 03/113 106 158/90 03/11 2255 97.7 87 18 158/90 96 Room Air 03/11 2218 Room Air 03/11 2122 98.5 110 16 176/94 97 Room Air 03/11 1946 97 Room Air 03/11 1946 98.5 98 18 185/105 97 Room Air 03/11 1653 97.7 98 18 178/97 95 Room Air Intake & Output 03/12 0800 03/12 0000 03/11 1600 Intake Total 425 0 Output Total 600 Balance -175 0 Intake, IV 0 Intake, Oral 425 Output, Urine 600 Patient 138.913 kg Weight Weight Bed scale Measurement Method Physical Exam General Appearance: Alert, Oriented X3, Cooperative, No Acute Distress Skin: No Rashes Neck: No JVD Cardiovascular: no JVD. Irregularly rregular with systolic ejection murmur Lungs: expiratory wheezing on right Abdomen: Normal Bowel Sounds, Soft, No Tenderness Extremities: 1+ pitting edema to thighs Current Medications: Current Medications Sig/Rachel Start time Last Medication Dose Route Stop Time Status Admin Atorvastatin Calcium 40 MG DAILY 03/12 0900 AC PO Azithromycin 500 MG DAILY 03/12 09 AC Sodium Chloride 250 ML IV Ceftriaxone Sodium 2,000 MG DAILY 03/12 09 AC IV Fenofibrate 145 MG DAILY 03/12 09 AC PO Folic Acid 1 MG DAILY 03/12 09 AC PO Heparin Sodium 5,000 UNIT Q8 03/11 2200 DC (Porcine) SC Losartan Potassium 50 MG DAILY 03/12 0900 CAN PO Methylprednisolone 40 MG Q12 03/11 2158 AC 03/11 IV 2333 Metoprolol Tartrate 50 MG BID 03/11 220 AC 03/11 PO 2333 Montelukast Sodium 10 MG DAILY 03/12 0900 AC PO Omeprazole 40 MG DAILY AC 03/12 0700 AC 03/12 PO 0544 Rivaroxaban 20 MG DAILY 03/12 0900 AC PO Last 24 Hrs of Lab/Ramon Results Last 24 Hrs of Labs/Mics: Laboratory Tests 03/12/18 0632: Sodium Pending, Potassium Pending, Chloride Pending, Carbon Dioxide Pending, Anion Gap Pending, BUN Pending, Creatinine Pending, BUN/Creatinine Ratio Pending , Magnesium Pending, CBC w Diff Pending, WBC Pending, RBC Pending, Hgb Pending, Hct Pending, MCV Pending, MCH Pending, MCHC Pending, RDW Pending, Plt Count Pending, MPV Pending 03/11/18 1715: Anion Gap 13, Estimated GFR 41 L, BUN/Creatinine Ratio 17.1, Glucose 111 H, Calcium 9.3, Magnesium 1.7, Total Bilirubin 0.4, AST 16 L, ALT 16 L, Alkaline Phosphatase 48, Troponin I < 0.01, Vuc-W-Vzhloblzoeh Pept 2090 H, Total Protein 6.4, Albumin 3.5, Globulin 2.9, Albumin/Globulin Ratio 1.2, CBC w Diff NO MAN DIFF REQ, RBC 4.72, MCV 89.7, MCH 29.6, MCHC 33.0, RDW 14.5, MPV 8.2, Gran % 76.5 H, Lymphocytes % 11.7 L, Monocytes % 7.9, Eosinophils % 3.6, Basophils % 0.3, Absolute Granulocytes 7.9 H, Absolute Lymphocytes 1.2, Absolute Monocytes 0.8 H, Absolute Eosinophils 0.4, Absolute Basophils 0 Microbiology 03/12 05 URINE ROUT: Legionella Antigen - COMP 03/12 530 URINE ROUT: Streptococcus pneumoniae Antigen (M - COMP 03/12 0035 LOWER RESP: Respiratory Culture - RECD 03/12 003 LOWER RESP: Gram Stain - RECD 03/11 1855 BLOOD: Blood Culture - RECD 03/11 171 BLOOD: Blood Culture - RECD Assessment/Plan Assessment: Mr. Slaughter is a 67M with history of significant hypertension, paroxysmal atrial fibrillation on anticoag, hyperlipidemia, diabetes, morbid obesity with obstructive sleep apnea non compliant with CPAP, moderate alcohol use, significant BPH, nephrolithiasis, recurrent sinusitis, pulmonary hypertension from obstructive sleep apnea and moderate aortic stenosis who presents with shortness of breath. Problem list: 1. Acute on chronic diastolic heart failure 2. Possible community-acquired pneumonia 3. Possible COPD exacerbation #Acute on chronic diastolic heart failure: The patient's history of cough associated with shortness of breath, edema, and orthopnea raises suspicion for heart failure. His previous echocardiogram showed moderate left atrial dilatation, normal ejection fraction, and moderate aortic stenosis. He does have peripheral edema today and some mild wheezing. COPD exacerbation is also on the differential. His CT did show a groundglass opacity that is nonspecific. His chest x-ray yesterday seems like it has some pulmonary vascular congestion compared to prior. It would be good to diurese him. His creatinine is at his baseline (1.6) because he has CKD. I have low suspicion that he has worsening pneumonia at this point given lack of leukocytosis or fever, though he may be recovering from it since he has received several days of antibiotics. -Cardiology consult -TTE -Furosemide 80mg daily -Ceftriaxone and azithromycin for one more day -Continue steroids -TRC nebs -Salt and fluid restriction -Holding epleronone #Chronic medical problems: -Continue other home medications DVT prophylaxis with rivaroxaban CHF diet with 1000 mL fluid restriction Full code Problem List: 1. Acute CHF (congestive heart failure) Pain Ratin Pain Location: no Pain Goal: Remain pain free Pain Plan: see a/p Tomorrow's Labs & Rationales: bep
[2018-03-12 08:02] LABS: ABSOLUTE BASOPHIL COUNT 0 /CUMM (0.0-0.2); ABSOLUTE EOSINOPHIL COUNT 0 /CUMM (0.0-0.7); ABSOLUTE GRANULOCYTE CT 9.8 /CUMM (1.4-6.5); ABSOLUTE LYMPH COUNT 0.5 /CUMM (1.2-3.4); ABSOLUTE MONOCYTE COUNT 0.2 /CUMM (0.10-0.60); BASOPHIL % 0.2 % (0.0-2.0); EOSINOPHIL % 0.1 % (0-5); HEMATOCRIT 40.2 % (42-52); MEAN CORPUSCULAR HGB 29.8 PG (27.0-31.0); MEAN CORPUSCULAR HGB CONC 33.1 G/DL (33.0-37.0); MEAN CORPUSCULAR VOLUME 90.1 FL (80.0-94.0); MEAN PLATELET VOLUME 8.9 FL (7.4-10.4); PLATELET COUNT 261 /CUMM (130-400); RED BLOOD CELL CT 4.46 /CUMM (4.70-6.10); WHITE BLOOD CELL COUNT 10.5 /CUMM (4.8-10.8)
--- NOTE | 2018-03-12 09:32 | Cons- Cardiology ---
General Information and HPI Consulting Request Date of Consult: 03/12/18 Requested By: Willy SHEIKH,Demarcus Jacques Reason for Consult: Respiratory distress question congestive heart failure. Source of Information: patient, old records Exam Limitations: no limitations History of Present Illness: Lili Chung is a 67-year-old male with long standing severe hypertension, morbid obesity, chronic atrial fibrillation, aortic stenosis, CKD and obstructive sleep apnea. I began seeing him in 2003 for poorly controlled hypertension. He had dyslipidemia and diabetes, but no evidence of coronary artery disease. Subsequently we were able to get his blood pressure under control. However, in 2010 he went into atrial fibrillation. He was anticoagulated and we did cardiovert him on that admission in 02/2011. However, in 12/2011 he went back into atrial fibrillation. He was asymptomatic at that time. He had been off anticoagulants and we did put him on Pradaxa, recently changed to Xarelto. We also sent him to Dr. Rios who saw him in 01/2012, and the conclusion of that consultation was that we would leave him in atrial fibrillation with rate control until he lost a lot of weight, because Dr. Rios thought the chances of him staying out of atrial fibrillation at his level of obesity was small. Subsequently he has unfortunately not lost much weight and has remained in atrial fibrillation, which has for the most part been rate controlled. I started him on Cardizem in 2013 for better rate control. In 12/2014, he took a trip to [place], and had a weak and dizzy spell after a day at [employer]. He was taken to a hospital, where he was found to be hypotensive and dehydrated. He was given IV fluids, and kept overnight, and then insisted on leaving the hospital. He states now his creatinine was elevated to about 3 at that time. Lili subsequently recovered from that episode without sequela. In April 2015 he presented to the hospital with Haemophilus influenza pneumonia. We did do an echocardiogram on him on that hospitalization which showed normal left ventricular systolic function, atrial dilatation, mild aortic stenosis with a peak gradient of 22 mmHg, and a mean gradient of 13 mmHg, and a mildly elevated pulmonary artery pressure of 35-40 mmHg. Lili did fully recover from that episode. Subsequently Lili had an episode of renal stones in 2015. In the spring of 2016 Lili had some some upper respiratory issues going on, and had a couple of courses of antibiotics and steroids. Subsequently his breathing was better. He also had periods of dizziness and weakness, and his blood pressure was intermittent below 100. I talked to him about this, he stopped taking diltiazem, which was only a dose of 120 mg daily, and he felt much better , and his blood pressure was consistently 110 to 120. He is no longer taking amlodipine. His echo in 02/2017 now showed moderate . In the end of March, Lili began noticing increasing shortness of breath and edema while he was on vacation and had significant limitation in his activity. Subsequently he was sent to the emergency room on 04/29/[address] Aguilera and was found to be in mostly right sided congestive heart failure with some left sided failure. He was diuresed with intravenous Lasix and did much better with good diuresis. At the time of his admission, he was only on 20 mg of Lasix and 50 mg of eplerenone. He actually had 1 ER visit for shortness of breath a couple of weeks prior and was given a dose of IV Lasix and discharged from the ER. However, he did not consistently improve. By the time of his discharge we had sent him out on Lasix 40 mg twice a day and he was feeling much better. Subsequently at his post-hospital office visit he was doing well. He continued to do well until 06/19/2017 when he presented to the Emergency Department with shortness of breath and chest discomfort associated with some wheezing. He had a 2-troponin rule out, which was negative, and his chest x-ray did not show congestive heart failure. I thought this was an exacerbation of his asthma. He had actually just been started on steroids. I recommended an outpatient stress test as a followup to this ER evaluation. He had his stress test done on , which was a Persantine nuclear stress test and was negative for ischemia. Lili has recently been going to the CHF clinic and getting IV Lasix as needed. He recently was in [place] for a week visiting his daughter and when he came back he had a lot more edema than previously and required more intensive IV Lasix therapy. This seems to have improved. However over the last few days he has gotten more short of breath with wheezing and orthopnea. A CAT scan done a few days ago was consistent with a right lower lobe infiltrate and he was started on antibiotics by Dr. Aguilera. However he has not improved and went to the emergency room yesterday. His chest x-ray done yesterday now shows what I believe is an infiltrate which was not present or was minimally present on his previous chest x-ray of 3 days prior. He is now on IV steroids as well as IV antibiotics. This morning he is feeling better. He is less short of breath and is able to lie flat, which he was not previously. Of note is that his BNP was elevated to over 2000, but this is somewhat unreliable at this age and in chronic atrial fibrillation. Allergies/Medications Allergies: Coded Allergies: NO KNOWN ALLERGIES (02/11/11) Home Med List: Albuterol Sulfate (Proair Hfa) 90 MCG HFA.AER.AD 2 PUF INH BID PRN ASTHMA/COPD (Reported) Atorvastatin Calcium 40 MG TABLET 1 TAB PO DAILY CHOLESTEROL (Reported) Azelastine/Fluticasone (Dymista Nasal [place]) 137 MCG-50 MCG/SPRAY SPRAY.PUMP 1 SPRAY NASB BID ALLERGIES (Reported) Budesonide/Formoterol Fumarate (Symbicort 160-4.5 Mcg Inhaler) 160 MCG-4.5 MCG/ ACTUATION HFA.AER.AD 2 PUF INH BID COPD (Reported) Eplerenone 50 MG TABLET 1 TAB PO DAILY BP (Reported) Esomeprazole (Nexium) 40 MG CAPSULE.DR 1 CAP PO DAILY GI (Reported) Fenofibrate Nanocrystallized (Fenofibrate) 145 MG TABLET 1 TAB PO DAILY CHOLESTEROL/TRIGLYCERIDES (Reported) Folic Acid 0.4 MG TABLET 1 TAB PO DAILY SUPPLEMENT (Reported) Furosemide (Lasix) 40 MG TABLET 1 TAB PO BID water pill (Reported) Ipratropium/Albuterol Sulfate (Iprat-Albut 0.5-3(2.5) MG/3 Ml) 0.5 MG-3 MG (2.5 MG BASE)/3 ML AMPUL.NEB 1 VIAL INH Q6H PRN ASTHMA/COPD (Reported) Levocetirizine Dihydrochloride 5 MG TABLET 1 TAB PO DAILY ALLERGIES (Reported ) Levofloxacin 500 MG TABLET 1 TAB PO DAILY ABX (Reported) Metformin HCl 500 MG TABLET 1 TAB PO DAILY DM (Reported) Metoprolol Tartrate 50 MG TABLET 1 TAB PO BID HEART/BP (Reported) Montelukast Sodium 10 MG TABLET 1 TAB PO DAILY ALLERGIES (Reported) Olmesartan Medoxomil (Benicar) 20 MG TABLET 1 TAB PO DAILY BP (Reported) Omalizumab (Xolair) 150 MG VIAL 150 MG INJ Q2W ALLERGIES (Reported) Potassium Chloride 40 MEQ/15 ML LIQUID 15 ML PO DAILY SUPPLEMENT (Reported) Rivaroxaban (Xarelto) 20 MG TABLET 1 TAB PO DAILY BLOOD THINNER (Reported) with food Tiotropium [place] (Spiriva Respimat) 1.25 MCG/ACTUATION MIST.INHAL 2.5 MCG INH DAILY ASTHMA/COPD (Reported) Current Medications: Current Medications Sig/Rachel Start time Last Medication Dose Route Stop Time Status Admin Atorvastatin Calcium 40 MG DAILY 03/12 0900 AC 03/12 PO 0856 Azithromycin 500 MG DAILY 03/12 0900 AC 03/12 Sodium Chloride 250 ML IV 0858 Ceftriaxone Sodium 2,000 MG DAILY 03/12 0900 AC 03/12 IV 0858 Fenofibrate 145 MG DAILY 03/12 0900 AC 03/12 PO 0856 Folic Acid 1 MG DAILY 03/12 0900 AC 03/12 PO 0856 Heparin Sodium 5,000 UNIT Q8 03/11 2200 DC (Porcine) SC Losartan Potassium 50 MG DAILY 03/12 0903 AC 03/12 PO 0906 Losartan Potassium 50 MG DAILY 03/12 0900 CAN PO Melatonin 5 MG AT BEDTIME 03/12 2100 AC PO Methylprednisolone 40 MG Q12 03/11 2158 AC 03/12 IV 0857 Metoprolol Tartrate 50 MG BID 03/11 2204 AC 03/12 PO 0856 Montelukast Sodium 10 MG DAILY 03/12 0900 AC 03/12 PO 0857 Omeprazole 40 MG DAILY AC 03/12 0700 AC 03/12 PO 0544 Rivaroxaban 20 MG DAILY 03/12 0900 AC 03/12 PO 0856 Review of Systems Review of Systems: no other complaints Past History Travel History Traveled to [place] past 21 day No Medical History Blood Transfusion Hx: No Neurological: NONE EENT: NONE Cardiovascular: AFIB, CHF, hypertension, hyperlipidemia Respiratory: asthma, COPD, obstructive sleep apnea Gastrointestinal: GERD Hepatic: NONE Renal: chronic kidney disease, KIDNEY STONES Musculoskeletal: osteoarthritis Psychiatric: NONE Endocrine: diabetes Blood Disorders: NONE Cancer(s): NONE 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 Home Who Do You Live With? spouse Services at Home: None Primary Language: Faroese Smoking Status: Former Smoker Exam & Diagnostic Data Vital Signs and I&O Vital Signs Date Time Temp Pulse Resp B/P B/P Pulse O2 O2 Flow FiO2 Mean Ox Delivery Rate 03/12 0906 93 158/80 03/12 0856 93 158/80 03/12 0621 97.8 93 20 158/80 94 Room Air 03/11 2333 106 158/90 03/11 2255 97.7 87 18 158/90 96 Room Air 03/11 2218 Room Air 03/11 2122 98.5 110 16 176/94 97 Room Air 03/11 1946 97 Room Air 03/11 1946 98.5 98 18 185/105 97 Room Air 03/11 1653 97.7 98 18 178/97 95 Room Air Intake & Output 03/12 1600 03/12 0800 03/12 0000 03/11 1600 03/11 0800 03/11 0000 Intake Total 425 0 Output Total 600 Balance -175 0 Intake, IV 0 Intake, Oral 425 Output, Urine 600 Patient 306 lb Weight Weight Bed scale Measurement Method Physical Exam: He is in no distress HEENT exam is normal Chest reveals diffuse rhonchi and a few scattered wheezes Heart irregular rhythm, prominent systolic ejection murmur at the base Extremities trace to 1+ edema Labs/Ramon Results: Laboratory Tests 03/12 03/11 0632 1715 Chemistry Sodium (137 - 145 mmol/L) 140 145 Potassium (3.5 - 5.1 mmol/L) 4.6 4.1 Chloride (98 - 107 mmol/L) 102 102 Carbon Dioxide (22 - 30 mmol/L) 28 29 Anion Gap (5 - 16) 10 13 BUN (9 - 20 mg/dL) 32 H 29 H Creatinine (0.7 - 1.2 mg/dL) 1.6 H 1.7 H Estimated GFR (>60 ml/min) 44 L 41 L BUN/Creatinine Ratio (7 - 25 %) 20.0 17.1 Glucose (65 - 99 mg/dL) 111 H Calcium (8.4 - 10.2 mg/dL) 9.3 Magnesium (1.6 - 2.3 mg/dL) 1.6 1.7 Total Bilirubin (0.2 - 1.3 mg/dL) 0.4 AST (17 - 59 U/L) 16 L ALT (21 - 72 U/L) 16 L Alkaline Phosphatase (< 127 U/L) 48 Troponin I (<0.11 ng/ml) Pending < 0.01 Ubg-G-Ohvyhpfsxlx Pept (<125 pg/mL) 2090 H Total Protein (6.3 - 8.2 g/dL) 6.4 Albumin (3.5 - 5.0 g/dL) 3.5 Globulin (1.9 - 4.2 gm/dL) 2.9 Albumin/Globulin Ratio (1.1 - 2.2 %) 1.2 Hematology CBC w Diff Pending NO MAN DIFF REQ WBC (4.8 - 10.8 /CUMM) Pending 10.3 RBC (4.70 - 6.10 /CUMM) Pending 4.72 Hgb (14.0 - 18.0 G/DL) Pending 14.0 Hct (42 - 52 %) Pending 42.3 MCV (80.0 - 94.0 FL) Pending 89.7 MCH (27.0 - 31.0 PG) Pending 29.6 MCHC (33.0 - 37.0 G/DL) Pending 33.0 RDW (11.5 - 14.5 %) Pending 14.5 Plt Count (130 - 400 /CUMM) Pending 267 MPV (7.4 - 10.4 FL) Pending 8.2 Gran % (42.2 - 75.2 %) Pending 76.5 H Lymphocytes % (20.5 - 51.1 %) Pending 11.7 L Monocytes % (1.7 - 9.3 %) Pending 7.9 Eosinophils % (0 - 5 %) Pending 3.6 Basophils % (0.0 - 2.0 %) Pending 0.3 Absolute Granulocytes (1.4 - 6.5 /CUMM) Pending 7.9 H Absolute Lymphocytes (1.2 - 3.4 /CUMM) Pending 1.2 Absolute Monocytes (0.10 - 0.60 /CUMM) Pending 0.8 H Absolute Eosinophils (0.0 - 0.7 /CUMM) Pending 0.4 Absolute Basophils (0.0 - 0.2 /CUMM) Pending 0 Diagnostic Data EKG Results EKG shows atrial fibrillation rate 102, low voltage frontal plane, poor R-wave progression. This is similar to his baseline cardiograms. CXR Results PATIENT: LILI CHUNG PRESENT AGE: 67 PATIENT ACCOUNT NO: [id number] : 52 LOCATION: [facility] [place] ORDERING PHYSICIAN: Faisal MENDOZA SERVICE DATE: 03/11/18 EXAM TYPE: RAD - XRY-CHEST XRAY, TWO VIEWS EXAMINATION: CHEST 2 VIEWS CLINICAL INFORMATION: Shortness of breath, cough. COMPARISON: 03/06/2018. TECHNIQUE: PA and lateral views of the chest were obtained. FINDINGS: The cardiac silhouette is stable. The mediastinal and hilar contours are unremarkable. There are no pneumothoraces. There is a small left pleural effusion. There is mild associated atelectasis. There are no consolidations. The osseous structures are stable. IMPRESSION: No consolidations. Small left pleural effusion. DICTATED BY: Panchito Ko MD DATE/TIME DICTATED:03/11/181743 OUTPATIENT CODER:SVETLANA DATE/TIME TRANSCRIBED:03/11/181743 CONFIDENTIAL, DO NOT COPY WITHOUT APPROPRIATE AUTHORIZATION. <Electronically signed in Other Vendor System> SIGNED BY: Panchito Ko MD 03/11/181749 Other Results PATIENT: LILI CHUNG PRESENT AGE: 67 PATIENT ACCOUNT NO: [id number] : 52 LOCATION: [facility] [place] ORDERING PHYSICIAN: Venessa MENDOZA SERVICE DATE: 03/08/18-1220 EXAM TYPE: CAT - CTA CHEST-PULMONARY EMBOLISM EXAMINATION: CT ANGIOGRAM OF THE CHEST WITH AND WITHOUT CONTRAST (CT PULMONARY ANGIOGRAM FOR PE) CLINICAL INFORMATION: Rule out pulmonary embolism. Chest pain, hemoptysis, recent travel. COMPARISON: CT of the chest done on 08/06/2017, 08/13/2016, 07/24/2015, and 05/01/2015. TECHNIQUE: Prior to contrast administration, noncontrast localization images were obtained. Subsequently, multidetector volumetric imaging was performed from the thoracic inlet to below the diaphragms following the administration of 82 mL Optiray 320 intravenous contrast. No contrast reaction reported. Sagittal, coronal, and MIP oblique sagittal reformatted images were obtained on the CT workstation, uploaded to PACS, and reviewed. Total exam dose-length product 553.25 mGy-cm. FINDINGS: QUALITY OF STUDY/CONTRAST BOLUS: Satisfactory. PULMONARY ARTERIES: No central or segmental pulmonary emboli. THORACIC AORTA: No aneurysm or dissection. LUNG: Previously documented sub-5 mm 2 right upper lobar and solitary sub-5 mm left upper lobar lung nodules appear stable since the available baseline study dated 05/01/2015, consistent with benign pathology. Extensive emphysematous disease is noted bilaterally, similar to prior multiple studies. Interval development of groundglass as well as patchy peribronchiolar irregular nodular opacities are noted at right middle lobe involving the lateral segment and anterior basal segment of the right lower lobe, new since most recent prior study dated 08/06/2017, most consistent with infectious, inflammatory process (see the nathan images). PLEURA: Small right-sided pleural effusion/thickening is present, unchanged since 05/01/2015. Jcvos-om-kbcqluev left-sided pleural effusion is noted, shows minimal interval increase since 08/06/2017. MEDIASTINUM: Normal heart size. Small pericardial effusion is present, stable since 08/06/2017. Significant atherosclerotic disease including coronary arterial calcifications is seen. No hilar or mediastinal lymphadenopathy. No evidence of septal bowing or right heart strain. CHEST WALL/AXILLA: No axillary or internal mammary lymphadenopathy. OSSEOUS STRUCTURES: No acute or suspicious osseous abnormality. UPPER ABDOMEN: Unremarkable. No reflux of contrast into the hepatic veins to suggest elevated right heart pressures. IMPRESSION: 1. No CT evidence of pulmonary embolism. 2. Previously documented bilateral sub-5 mm upper lobar lung nodules appear stable since the available baseline study dated 05/01/2015, consistent with benign pathology. 3. Evidence of extensive emphysematous disease, appears stable since multiple prior studies, with interval development of superimposed groundglass as well as peribronchiolar nodular opacities are noted within the right middle and right lower lobe of the lung, most consistent with infectious or inflammatory process. 4. Stable small right-sided pleural effusion and/or thickening, unchanged since the baseline study dated 05/01/2015. 5. Uhxgb-vd-dkbuzkqz left-sided pleural effusion shows minimal interval increase since 08/06/2017. 6. Stable small pericardial effusion. 7. Significant atherosclerotic disease including coronary arterial disease, appear unchanged. VTE: negative. DICTATED BY: Haydee Ward MD DATE/TIME DICTATED:03/08/181408 OUTPATIENT CODER:SVETLANA DATE/TIME TRANSCRIBED:03/08/18 / 1409 CONFIDENTIAL, DO NOT COPY WITHOUT APPROPRIATE AUTHORIZATION. <Electronically signed in Other Vendor System> SIGNED BY: Haydee Ward MD 03/08/18 6259 Assessment/Plan Assessment/Plan Lili's respiratory distress I believe is mostly pulmonary in nature. I do not think he is in gross congestive heart failure. In fact, his edema is markedly improved over last week. However he will require chronic diuretic therapy. I recommend putting him back on Lasix, while he is on fluid restriction let's start with 80 mg once daily p.o. I agree with an echocardiogram, which he has not had for over a year. I think his LV function will probably be good but we do need to reassess his aortic stenosis, which was at least moderate on the last study. I would leave his BP meds the same for now but monitor them closely. He was previously on amlodipine which was discontinued at some point as his blood pressure normalized, but we may have to reinstitute this at some point. Consult Acknowledgment - Thank you for your consult request.
[2018-03-12 09:52] LABS: GRANULOCYTE % 93.3 % (42.2-75.2)
[2018-03-12 20:40] VITALS: BP 168/80
[2018-03-12 22:28] VITALS: BP 164/98
[2018-03-13 06:00] VITALS: BP 162/94
--- NOTE | 2018-03-13 07:31 | PN- Housestaff ---
See Addendum Subjective Follow-up For: COPD/CHF/pneumonia Tele-Events Since Last Visit: Atrial fibrillation, 801 20, questionable 3 beat ventricular tachycardia Subjective: No overnight events. Patient feels well this morning and back to his baseline. He loaded longer has any shortness of breath. He thinks that the steroids have helped. Today is his birthday. He says he was born at [place] so he has "come [place]." He would like to be discharged today. Review of Systems Constitutional: Reports: no symptoms. EENTM: Reports: no symptoms. Cardiovascular: Reports: no symptoms. Respiratory: Reports: see HPI. Gastrointestinal: Reports: no symptoms. Genitourinary: Reports: no symptoms. Musculoskeletal: Reports: no symptoms. Skin: Reports: no symptoms. Neurological/Psychological: Reports: no symptoms. Hematologic/Endocrine: Reports: no symptoms. Immunologic/Allergic: Reports: no symptoms. Objective Last 24 Hrs of Vital Signs/I&O Vital Signs Date Time Temp Pulse Resp B/P B/P Pulse O2 O2 Flow FiO2 Mean Ox Delivery Rate 03/13 06 97.9 94 20 162/94 95 / 0000 94 Room Air 03/12 2228 97.8 164/98 03/12 2040 122 168/80 03/12 2040 122 18 168/80 95 Room Air 03/12 1600 Room Air 03/12 1219 Room Air 03/12 0906 93 158/80 03/12 0856 93 158/80 03/12 0800 Room Air Intake & Output 03/13 0800 03/13 0000 03/12 1600 Intake Total 200 660 820 Output Total 250 850 375 Balance -50 -190 445 Intake, IV 300 Intake, Oral 200 660 520 Output, Urine 250 850 375 Patient 139.706 kg Weight Physical Exam General Appearance: Alert, Oriented X3, Cooperative, No Acute Distress Cardiovascular: Regular Rate, Normal S1, Normal S2 Lungs: prolonged expiration with mild wheezing Abdomen: Normal Bowel Sounds, Soft, No Tenderness Extremities: No Edema, Normal Pulses, No Tenderness/Swelling Current Medications: Current Medications Sig/Rachel Start time Last Medication Dose Route Stop Time Status Admin Albuterol Sulfate 2 PUF Q4P PRN 03/12 1230 AC INH Atorvastatin Calcium 40 MG DAILY 03/12 0900 AC 03/12 PO 0856 Azithromycin 250 MG DAILY 03/13 0900 AC PO Azithromycin 500 MG DAILY 03/12 0900 DC 03/12 Sodium Chloride 250 ML IV 0858 Ceftriaxone Sodium 2,000 MG DAILY 03/12 0900 DC 03/12 IV 0858 Fenofibrate 145 MG DAILY 03/12 0900 AC 03/12 PO 0856 Folic Acid 1 MG DAILY 03/12 0900 AC 03/12 PO 0856 Furosemide 80 MG DAILY 03/12 1130 AC 03/12 PO 1132 Lorazepam 0.5 MG Q6P PRN 03/12 1515 AC 03/12 PO 03/19 1514 2157 Losartan Potassium 50 MG DAILY 03/12 0903 AC 03/12 PO 0906 Melatonin 5 MG AT BEDTIME 03/12 2100 AC PO Methylprednisolone 40 MG Q12 03/11 2158 DC 03/12 IV 0857 Metoprolol Tartrate 50 MG BID 03/11 2204 AC 03/12 PO 2040 Montelukast Sodium 10 MG DAILY 03/12 0900 AC 03/12 PO 0857 Omeprazole 40 MG DAILY AC 03/12 0700 AC 03/13 PO 0630 Patient Medication 1 ED ONE ONE 03/12 1700 DE Teaching ED 03/12 1701 Prednisone 50 MG DAILY 03/13 0900 AC PO 03/23 0859 Rivaroxaban 20 MG DAILY 03/12 0900 AC 03/12 PO 0856 Last 24 Hrs of Lab/Ramon Results Last 24 Hrs of Labs/Mics: Laboratory Tests 03/13/18 0616: Sodium Pending, Potassium Pending, Chloride Pending, Carbon Dioxide Pending, Anion Gap Pending, BUN Pending, Creatinine Pending, BUN/Creatinine Ratio Pending Assessment/Plan Assessment: Mr. Slaughter is a 67M with history of significant hypertension, paroxysmal atrial fibrillation on anticoag, hyperlipidemia, diabetes, morbid obesity with obstructive sleep apnea non compliant with CPAP, moderate alcohol use, significant BPH, nephrolithiasis, recurrent sinusitis, pulmonary hypertension from obstructive sleep apnea and moderate aortic stenosis who presents with shortness of breath. Problem list: 1. Acute on chronic diastolic heart failure 2. Possible community-acquired pneumonia 3. Possible COPD exacerbation #Acute on chronic diastolic heart failure: The patient's history of cough associated with shortness of breath, edema, and orthopnea raises suspicion for heart failure. His previous echocardiogram showed moderate left atrial dilatation, normal ejection fraction, and moderate aortic stenosis. He does have peripheral edema today and some mild wheezing. COPD exacerbation is also on the differential. His CT did show a groundglass opacity that is nonspecific. Today his breathing has improved. He thinks that this was secondary to the steroids. TTE shows moderate . He is stable for discharge. -Appreciate cardiology recommendations -Furosemide 80mg daily -Azithromycin -Continue steroid taper -TRC nebs -Salt and fluid restriction -Holding epleronone #Chronic medical problems: -Continue other home medications DVT prophylaxis with rivaroxaban CHF diet with 1000 mL fluid restriction Full code Problem List: 1. CHF exacerbation Pain Ratin Pain Location: no Pain Goal: Remain pain free Pain Plan: see a/p Tomorrow's Labs & Rationales: nbo
--- NOTE | 2018-03-13 08:51 | ECHOCARDIOGRAM REPORT ---
ILLI CHUNG Age: 67 : 1950 Gender: M Exam Date: 03/12/2018 20:00 Exam Location: [address] Ht (in): 68 Wt (lb): 297 BSA: 2.61 BP: 158 / 80 Ordering Physician: Bridgett Robert MD Referring Physician: Brian Technologist: Doreen Garcia RDCS Room Number: [id number] Indications: HEART FAILURE Rhythm: Atrial fibrillation Technical Quality: Very technically difficult study FINDINGS Left Ventricle Normal size left ventricle. Moderate concentric left ventricular hypertrophy. Normal left ventricular ejection fraction visually estimated at >65 %. No obvious regional wall motion abnormalities. Right Ventricle Right ventricle not well visualized, grossly normal. Right Atrium Right atrium not well visualized. Left Atrium Mild left atrial dilatation. Mitral Valve Mitral valve not well visualized, grossly normal. No mitral regurgitation. Aortic Valve Diffuse thickening of the aortic valve cusps with reduced excursion. Moderate aortic stenosis. No aortic regurgitation. Tricuspid Valve Tricuspid valve not well visualized, grossly normal. No tricuspid regurgitation. Unable to estimate the right ventricular systolic pressure. Pulmonic Valve Pulmonic valve not well visualized. No pulmonic regurgitation. Pericardium Small pericardial effusion. No echocardiographic findings to suggest a hemodynamically significant pericardial effusion. Great Vessels Normal size aortic root. Ascending aorta upper limits of normal in diameter. Aortic arch and great vessels not seen. CONCLUSIONS Technically difficult and limited study Moderate concentric left ventricular hypertrophy. Normal left ventricular ejection fraction visually estimated at >65 No obvious regional wall motion abnormalities. Mild left atrial dilatation. Mitral valve not well visualized, grossly normal. Diffuse thickening of the aortic valve cusps with reduced excursion. Moderate aortic stenosis. No aortic regurgitation. Unable to estimate the right ventricular systolic pressure. Small pericardial effusion. No echocardiographic findings to suggest a hemodynamically significant pericardial effusion. Ascending aorta upper limits of normal in diameter. Aortic arch and great vessels not seen. Cale Cartagena M.D. (Electronically Signed) Final Date: 13 March 2018 08:50 MEASUREMENTS (Male / Female) Normal Values 2D ECHO LV Diastolic Diameter PLAX 5.1 cm 4.2 - 5.9 / 3.9 - 5.3 cm LV Systolic Diameter PLAX 2.8 cm 2.1 - 4.0 cm LV Fractional Shortening PLAX 45.1 % 25 - 46 % LV Ejection Fraction 2D Teich 76.1 % IVS Diastolic Thickness 1.5 cm LVPW Diastolic Thickness 1.5 cm LV Relative Wall Thickness 0.6 RV Internal Dim ED PLAX 2.7 cm 1.9 - 3.8 cm LVOT Diameter 2.1 cm Aortic Root Diameter 3.2 cm LA Systolic Diameter LX 4.8 cm 3.0 - 4.0 / 2.7 - 3.8 cm LA Volume 50.0 cm 18 - 58 / 22 - 52 cm Ascending Aorta Diameter 3.7 cm DOPPLER AV Peak Velocity 333.0 cm/s AV Peak Gradient 44.4 mmHg AV Mean Velocity 245.0 cm/s AV Mean Gradient 27.0 mmHg AV Velocity Time Integral 70.4 cm LVOT Peak Velocity 109.0 cm/s LVOT Peak Gradient 4.8 mmHg LVOT Mean Velocity 78.6 cm/s LVOT Mean Gradient 3.0 mmHg LVOT Velocity Time Integral 22.1 cm LVOT Stroke Volume 76.5 cm AV Area Cont Eq vti 1.1 cm AV Area Cont Eq pk 1.1 cm MV Peak Velocity 160.0 cm/s MV Peak Gradient 10.2 mmHg MV Mean Velocity 88.8 cm/s MV Mean Gradient 4.0 mmHg Mitral E Point Velocity 94.8 cm/s MV PHT Velocity 163.0 cm/s MV Deceleration Fountain 854.0 cm/s MV Pressure Half Time 57.3 ms MV Area PHT 3.8 cm MV Deceleration Time 209.0 ms PV Peak Velocity 101.0 cm/s PV Peak Gradient 4.1 mmHg PV Mean Velocity 69.0 cm/s PV Mean Gradient 2.0 mmHg PV Velocity Time Integral 19.9 cm LV E' Lateral Velocity 13.0 cm/s Mitral E to LV E' Lateral Ratio 7.3 LV E' Septal Velocity 13.7 cm/s Mitral E to LV E' Septal Ratio 6.9
[2018-03-13 09:35] VITALS: BP 160/90
--- NOTE | 2018-03-13 11:11 | Discharge Summary ---
Visit Information Visit Dates Admission Date: 03/11/18 Discharge Date: 03/13/18 Hospital Course Course Attending Physician: Demarcus Aguilera MD Primary Care Physician: Demarcus Aguilera MD Hospital Course: Mr. Slaughter is a 67M with history of significant hypertension, paroxysmal atrial fibrillation on anticoag, hyperlipidemia, diabetes, morbid obesity with obstructive sleep apnea non compliant with CPAP, moderate alcohol use, significant BPH, nephrolithiasis, recurrent sinusitis, pulmonary hypertension from obstructive sleep apnea and moderate aortic stenosis who presented with shortness of breath. Problem list: 1. Acute on chronic diastolic heart failure 2. Possible community-acquired pneumonia 3. Possible COPD exacerbation #Acute on chronic diastolic heart failure: The patient's history of cough associated with shortness of breath, edema, and orthopnea raises suspicion for heart failure. However, imaging and clinical exam did not fully support this and it's possible that he also had COPD exacerbation and/or recovering from community acquired pneumonia. His previous echocardiogram showed moderate left atrial dilatation, normal ejection fraction, and moderate aortic stenosis. His breathing has subsequently improved status post starting steroids, azithromycin, and furosemide. A repeat TTE showed moderate aortic stenosis. He is stable for discharge and will follow up with cardiology. We will continue to hold his eperlerone. #Chronic medical problems: His other home medications are continued. Allergies: Coded Allergies: NO KNOWN ALLERGIES (02/11/11) Disposition Summary Disposition Principal Diagnosis: 1. Acute on chronic diastolic heart failure Additional Diagnosis: 2. Possible community-acquired pneumonia 3. Possible COPD exacerbation Discharge Disposition: home or self care Discharge Instructions General Discharge Information Code Status: Full Code Patient's Diet: CHF diet Patient's Activity: As tolerated Follow-Up Instructions/Appts: Please take all medications as directed. Please follow-up with primary care and cardiology. Medications at Discharge Discharge Medications: Stop taking the following medications: Eplerenone (Eplerenone) 50 MG TABLET ORAL DAILY Qty = 90 Levofloxacin (Levofloxacin) 500 MG TABLET ORAL DAILY Qty = 7 Furosemide (Lasix) 40 MG TABLET ORAL TWICE DAILY Continue taking these medications: Ipratropium/Albuterol Sulfate (Iprat-Albut 0.5-3(2.5) MG/3 Ml) 0.5 MG-3 MG (2.5 MG BASE)/3 ML AMPUL.NEB 1 VIAL Inhale through mouth Q6H as needed for ASTHMA/COPD Qty = 540 Comments: NOT GIVEN IN HOSPITAL Metoprolol Tartrate (Metoprolol Tartrate) 50 MG TABLET 1 Tablet ORAL TWICE DAILY Qty = 180 Comments: Last Taken:03/13/18 Time:0935 AM Olmesartan Medoxomil (Benicar) 20 MG TABLET 1 Tablet ORAL DAILY Qty = 90 Comments: Last Taken:03/13/18 Time:0935 AM SUBSTITUTED WITH COZAAR Atorvastatin Calcium (Atorvastatin Calcium) 40 MG TABLET 1 Tablet ORAL DAILY Qty = 90 Comments: Last Taken:03/13/18 Time:0935 AM Azelastine/Fluticasone (Dymista Nasal [place]) 137 MCG-50 MCG/SPRAY SPRAY.PUMP 1 [place] Both sides of nose TWICE DAILY Qty = 23 Comments: NOT GIVEN THIS ADMISSION Levocetirizine Dihydrochloride (Levocetirizine Dihydrochloride) 5 MG TABLET 1 Tablet ORAL DAILY Qty = 90 Comments: NOT GIVEN THIS ADMISSION Omalizumab (Xolair) 150 MG VIAL 150 Milligram INJECTABLE EVERY 2 WEEKS Qty = 6 Comments: NOT GIVEN THIS ADMISSION Fenofibrate Nanocrystallized (Fenofibrate) 145 MG TABLET 1 Tablet ORAL DAILY Qty = 90 Comments: Last Taken: 03/13/18 Time:0935 AM Rivaroxaban (Xarelto) 20 MG TABLET 1 Tablet ORAL DAILY Qty = 90 Instructions: with food Comments: Last Taken:03/13/18 Time:0935 AM Metformin HCl (Metformin HCl) 500 MG TABLET 1 Tablet ORAL DAILY Qty = 180 Comments: NOT GIVEN THIS ADMISSION Montelukast Sodium (Montelukast Sodium) 10 MG TABLET 1 Tablet ORAL DAILY Qty = 90 Comments: Last TakeN: 03/13/18 Time:0935 AM Albuterol Sulfate (Proair Hfa) 90 MCG HFA.AER.AD 2 Puff Inhale through mouth TWICE DAILY as needed for ASTHMA/COPD Qty = 9 Comments: NOT GIVEN THIS ADMISSION Tiotropium [place] (Spiriva Respimat) 1.25 MCG/ACTUATION MIST.INHAL 2.5 Microgram Inhale through mouth DAILY Qty = 12 Comments: NOT GIVEN IN HOSPITAL Potassium Chloride (Potassium Chloride) 40 MEQ/15 ML LIQUID 15 Milliliters ORAL DAILY Qty = 2700 Comments: NOT GIVEN IN HOSPITAL Budesonide/Formoterol Fumarate (Symbicort 160-4.5 Mcg Inhaler) 160 MCG-4.5 MCG/ ACTUATION HFA.AER.AD 2 Puff Inhale through mouth TWICE DAILY Comments: NOT GIVEN IN HOSPITAL Esomeprazole (Nexium) 40 MG CAPSULE. 1 Capsule ORAL DAILY Comments: Last Taken:03/13/18 Time:0630 AM PRILOSEC GIVEN Folic Acid (Folic Acid) 0.4 MG TABLET 1 Tablet ORAL DAILY Comments: Last Taken:03/13/18 Time:0935 AM Start taking the following new medications: Azithromycin (Azithromycin) 250 MG TABLET 250 Milligram ORAL DAILY Qty = 3 No Refills Comments: Last Taken:03/13/18 Time:0935 AM Prednisone (Prednisone) 10 MG TABLET 10 Milligram ORAL DAILY Qty = 25 No Refills Instructions: Please take 50mg on 03/14/18, 40mg on 03/15/18-03/16/18, 30mg on 03/17/18-03/18/18, 20mg on 03/19/18-03/20/18, 10mg on 03/21/18-03/22/18, then stop. Comments: Last Taken:03/13/18 Time:0935 AM Furosemide (Furosemide) 80 MG TABLET 1 Tablet ORAL DAILY Qty = 30 No Refills Comments: Last Taken:03/13/18 Time:0935 AM Copies To: Willy SHEIKH,Demarcus Jacques; Osiel SHEIKH,Cale Taylor Attending Review Statement Documenting Attending: Demarcus Aguilera MD Other Findings: agree with above seen and examined stable ok to dc today details as above
[2018-03-13] MEDS ORDERED: AZITHROMYCIN250 M1 PO (11:28)
[2018-03-13] MEDS ORDERED: PREDNISONE10 M2 PO (11:28)
[2018-03-13] MEDS ORDERED: FUROSEMIDE80 M1 PO (11:28)
--- NOTE | 2018-03-13 11:30 | Patient Discharge Instructions ---
Discharge Instructions General Discharge Information You were seen/treated for: CHF/COPD/pneumonia Watch for these problems: Fever, chest pain, shortness of breath Special Instructions: Please take all medications as directed. Please follow-up with primary care, cardiology, and at the CHF clinic. Diet Continue normal diet: Yes Recommended Diet: Heart Healthy Activity Full Activity/No Limits: Yes Acute Coronary Syndrome Inclusion Criteria At DC or during hospital stay patient has or had the following: ACS DIAGNOSIS No Discharge Core Measures Meds if any: Prescribed or Continued at Discharge Meds if any: NOT Prescribed or Continued at Discharge Congestive Heart Failure Inclusion Criteria At DC or during hospital stay patient has or had the following: CHF DIAGNOSIS Yes Discharge Core Measures Meds if any: Prescribed or Continued at Discharge MARIAELENA/ARB for EF <40% Yes Meds if any: NOT Prescribed or Continued at Discharge Cerebrovascular accident Inclusion Criteria At DC or during hospital stay patient has or had the following: CVA/TIA Diagnosis No Discharge Core Measures Meds if any: Prescribed or Continued at Discharge Meds if any: NOT Prescribed or Continued at Discharge Venous thromboembolism Inclusion Criteria VTE Diagnosis No VTE Type NONE VTE Confirmed by (Test) NONE Discharge Core Measures - Per Current guidelines, there needs to be overlap - treatment for the first 5 days of Warfarin therapy. - If discharged on Warfarin prior to 5 days of - overlap therapy, the patient will need to be - assessed for post discharge needs including - *Post discharge parental anticoagulation - *Warfarin and/or parental anticoagulation education - *Follow up date to check INR post discharge At least 5 days overlap therapy as Inpatient No Meds if any: Prescribed or Continued at Discharge Note: Overlap Therapy is Warfarin and Anticoagulant Meds if any: NOT Prescribed or Continued at Discharge
== END 2018-03-13 12:55 | DRG 291 ==
LOC: ERH 16:44 → 1NO 18:57 → ERHI 18:57 → ENRESERV 20:08 → ENTRNSPT 21:37 → EDTRNSPTSTS 21:44 → 1NO 21:55 → CMPTRNSPT 22:18 → ENPENDDIS 03-13 11:06 → ENTRNSPT 03-13 12:37 → EDTRNSPTSTS 03-13 12:41 → EDTRNSPT 03-13 12:41 → CMPTRNSPT 03-13 12:51 → 1NO 03-13 12:55
PROVIDERS: Internal Medicine; Physician Assistant Medical
DX: I13.0 Hypertensive heart and chronic kidney disease with heart failure and stage 1 through stage 4 chronic kidney disease, or unspecified chronic kidney disease (principal); I50.33 Acute on chronic diastolic (congestive) heart failure; J18.9 Pneumonia, unspecified organism; Z68.42 Body mass index [BMI] 45.0-49.9, adult; J44.0 Chronic obstructive pulmonary disease with (acute) lower respiratory infection; J44.1 Chronic obstructive pulmonary disease with (acute) exacerbation; I27.20 Pulmonary hypertension, unspecified; E66.01 Morbid (severe) obesity due to excess calories; E11.22 Type 2 diabetes mellitus with diabetic chronic kidney disease; I48.0 Paroxysmal atrial fibrillation; Z79.01 Long term (current) use of anticoagulants; N18.2 Chronic kidney disease, stage 2 (mild); G47.33 Obstructive sleep apnea (adult) (pediatric); I35.0 Nonrheumatic aortic (valve) stenosis; K21.9 Gastro-esophageal reflux disease without esophagitis; J32.9 Chronic sinusitis, unspecified; N40.0 Benign prostatic hyperplasia without lower urinary tract symptoms; E78.5 Hyperlipidemia, unspecified; Z87.891 Personal history of nicotine dependence
CPT/HCPCS: 1NP; 36592; 71046; 82436; 87040; 87070; 87449; 87450; 93005; 93010; 93306; J0456; J0696; J1644; J2920; J3490; J7040; J7512